=== PATIENT | female | born 1940 | race Caucasian/White ===

== ENCOUNTER 2020-03-13 13:54 | Outpatient (CLI) | payer MEDICARE, OTHER, SELFPAY ==
--- NOTE | 2020-03-13 13:55 | USCV_ITS ---
Zenobia Carrington Age: 79 Gender: F : 1940 Exam Date: 03/13/2020 13:55 Ordering Phys: Timothy Amezcua MD ([email or web address]) Technologist: Exam Location: [facility] – [place] Indication: PAD RIGHT LEFT Brachial 137.00 mmHg Brachial 135.00 mmHg Pressure (mmHg) Waveform Pressure (mmHg) Waveform 137.00 [employer] 127.00 136.00 DPA 129.00 0.99 Ankle/Brachial Index 0.94 55.00 Pre-Exercise Toe Pressure 70.00 0.40 Pre-Exercise Toe/Brachial Index 0.52 FINDINGS Normal resting TIGRE on the right side Near normal resting TIGRE on the left side Diminished resting TBI s bilaterally CONCLUSIONS Features of mild peripheral artery disease bilaterally, involving the distal vessels Dr Karsten Frias MD FACC (Electronically Signed) Final Date: 14 Mar 2020 14:01 S
== END 2020-03-13 13:55 | disposition home or self-care (01) ==
LOC: RAD 13:54
PROVIDERS: PCP Nurse Practitioner Family; Visit Provider Internal Medicine Cardiovascular Disease
DX: I73.9 Peripheral vascular disease, unspecified (principal)
CPT/HCPCS: 93922

== ENCOUNTER 2021-02-03 06:00 | Outpatient (RCR) | payer MEDICARE, OTHER, SELFPAY | END 2021-02-20 23:59 | disposition home or self-care (01) | LOC: WPT 06:00 | PROVIDERS: PCP Nurse Practitioner Family; Referring Provider Nurse Practitioner Family; Visit Provider Nurse Practitioner Family | DX: M54.32 Sciatica, left side (principal) | CPT/HCPCS: 97110; 97163 ==

== ENCOUNTER 2021-02-21 06:00 | Outpatient (RCR) | payer MEDICARE, OTHER, SELFPAY | END 2021-03-23 23:59 | disposition home or self-care (01) | LOC: WPT 06:00 | PROVIDERS: PCP Nurse Practitioner Family; Referring Provider Nurse Practitioner Family; Visit Provider Nurse Practitioner Family | DX: M54.32 Sciatica, left side (principal) | CPT/HCPCS: 97110 ==

== ENCOUNTER 2022-01-21 19:45 | Emergency (ER) | payer MEDICARE, OTHER, SELFPAY ==
[2022-01-21 19:48] VITALS: PULSE 64; RESP 18; O2SAT 98; BMI 26.5
--- NOTE | 2022-01-21 19:53 | CTR_ITS ---
PROCEDURE INFORMATION: Exam: CT Head Without Contrast Exam date and time: 01/21/2022 8:11 PM Age: 81 years old Clinical indication: Pain; Patient HX: HTN w/ headache TECHNIQUE: Imaging protocol: Computed tomography of the head without contrast. Sagittal and coronal reformatted images were created and reviewed. Radiation optimization: All CT scans at this facility use at least one of these dose optimization techniques: automated exposure control; mA and/or kV adjustment per patient size (includes targeted exams where dose is matched to clinical indication); or iterative reconstruction. COMPARISON: CT head wo con* [id number] 10/16/2019 2:27 PM RADIATION DOSE METRICS: Total DLP (mGy-cm): 754.37 FINDINGS: Brain: No acute intracranial hemorrhage. No acute infarct. No intra-axial or extra-axial masses. Parsons-white matter differentiation is preserved. No cerebral edema. No extra-axial fluid collections. No midline shift. No evidence for Chiari 1 malformation. Stable mild atrophy of the brain parenchyma. Stable mildly decreased attenuation in the deep white matter, consistent with mild chronic microangiopathic change. Cerebral ventricles: No hydrocephalus. Paranasal sinuses: Near complete opacification of the visualized left maxillary sinus, findings are stable. Other visualized paranasal sinuses are clear. Mastoid air cells: Mastoid air cells are clear bilaterally. Orbital cavities: Globes and lenses, extraocular muscles, and optic nerves are intact bilaterally. No acute intraorbital abnormality. Vasculature: Atherosclerotic changes in the visualized arteries. Bones/joints: No acute fracture. Soft tissues: No acute abnormality of the extracranial soft tissues. CT/CT head wo con* [id number] IMPRESSION: 1. No acute abnormality of the brain. 2. Stable mild atrophy of the brain parenchyma. 3. Stable mild chronic white matter microangiopathic change. 4. Near complete opacification of the visualized left maxillary sinus, findings are stable. 5. Incidental/nonacute findings are listed in the report.
--- NOTE | 2022-01-21 19:53 | XRR_ITS ---
PROCEDURE INFORMATION: Exam: XR Chest Exam date and time: 01/21/2022 8:04 PM Age: 81 years old Clinical indication: Pain; Patient HX: No chest complaints, dizziness; Additional info: Cp TECHNIQUE: Imaging protocol: XR of the chest. Views: 1 view. COMPARISON: CR Chest 1 [place] [id number] 09/16/2019 4:17 PM FINDINGS: Lungs: Lungs are clear bilaterally. Pleural spaces: No pleural effusion. No pneumothorax. Heart/Mediastinum: Stable moderate enlargement of the cardiac silhouette. Mediastinal contours are unremarkable. Vasculature: Stable vascular calcifications in the aorta. Stable tortuosity of the aorta. Bones/joints: Unremarkable for age. XR/XR chest 1V portable [id number] IMPRESSION: 1. No acute cardiopulmonary process. 2. Incidental/nonacute findings are listed in the report.
--- NOTE | 2022-01-21 19:54 | ECG_ITS ---
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 Measurements Intervals [place] Rate: 66 P: 72 WV: 211 QRS: -26 QRSD: 104 T: -7 QT: 404 QTc: 426 Interpretive Statements SINUS RHYTHM WITH FIRST DEGREE AV BLOCK MINIMAL VOLTAGE CRITERIA FOR LVH, CONSIDER NORMAL VARIANT [MEETS CRITERIA IN ONE OF: R(aVL), S(V1), R(V5), R(V5/V6)+S(V1)] SEPTAL MYOCARDIAL INFARCTION , PROBABLY OLD [40+ ms Q WAVE IN V1/V2] Compared to ECG 09/16/2019 22:04:34 First degree AV block now present Myocardial infarct finding now present Electronically Signed On 01-22-2022 10:59:15 CDT by Brittany Hanson M.D. [id number]
--- NOTE | 2022-01-21 19:57 | ED_ITS ---
HPI - Dizziness General: Chief Complaint: General Medical Stated Complaint: hypertension Time Seen by Provider: 01/21/22 19:47 Source: patient and EMS Mode of arrival: EMS Limitations: no limitations History of Present Illness: HPI Narrative: 81-year-old female has a history of high blood pressure also had a history of stroke in the past. States that over the last 3 days her blood pressures been running in the 200s she takes losartan at home along with a low-dose Lasix but states that tonight she started getting very nervous as her blood pressure was 210 she had some mild dizziness no focal deficits. She denies any pain anywhere denies headache. Associated symptoms: Denies chest pain, chills, nausea or vomiting Review of Systems Const: Denies: fever(s), chills, body aches or change in appetite Eyes: Denies: blurry vision or eye discomfort ENMT: Denies: throat pain or dental pain Card: Denies: chest pain Resp: Denies: dyspnea GI: Denies: abdominal pain, nausea, vomiting or diarrhea : Denies: dysuria Musc: Denies: neck pain or back pain Skin/Breast: Denies: rash Neuro: Reports: dizziness Psych: Denies: depression Yaron/Lymph: Denies: easy bruising All/Imm: Denies: urticaria PFSH ED PFSH: Medical History (Updated 01/21/22 @ 20:59 by Fabian Broussard MD) Anxiety Asthma CKD (chronic kidney disease) COPD (chronic obstructive pulmonary disease) First degree atrioventricular block GERD (gastroesophageal reflux disease) History of pulmonary embolism History of TIA (transient ischemic attack) X7 HTN (hypertension) Hyperlipidemia Migraine PVD (peripheral vascular disease) Surgical History S/P cataract surgery S/P cholecystectomy S/P hysterectomy S/P knee surgery S/P rotator cuff repair X3 right Family History Father Diabetes Mother Stroke Family/Other Cancer Brother , CVA Stroke Social History Smoking and tobacco status: former smoker Physical Exam Const: COMMON NORMALS: no acute distress, patient oriented x3 and healthy appearing HENMT: COMMON NORMALS: normocephalic and atraumatic HEAD & SCALP: normocephalic and atraumatic Eye: COMMON NORMALS: Equal, round and reactive pupils present and EOMs intact bilaterally PUPIL: Yes Equal, round and reactive pupils present Neck/C-Spine: COMMON NORMALS: full ROM and supple Chest: COMMONS NORMALS: normal inspection of the chest and normal palpation of entire chest wall Resp: COMMON NORMALS: normal respiratory effort, No retractions, No use of accessory muscles and clear to auscultation bilaterally AUSCULTATION: clear to auscultation bilaterally Cardio: COMMON NORMALS: regular rate, regular rhythm and No murmurs present (Cardio) RATE: regular rate RHYTHM: regular rhythm GI: COMMON NORMALS: Normal to inspection, nondistended, normoactive bowel sounds present, Soft to palpation, non-tender and no masses PALPATION: Yes Soft to palpation Extremity: COMMON NORMALS: normal to inspection and full ROM Neuro: COMMON NORMALS: patient oriented x3, moves all extremities and no focal motor deficits Psych: COMMON NORMALS: mental status grossly normal, Normal thought process present and cooperative THOUGHT PROCESS: Normal thought process present Skin: COMMON NORMALS: no rashes or lesions noted and no wounds GENERAL SKIN EXAM: no rashes or lesions noted Course Vital Signs: Vital signs: Vital Signs Pulse Rate 61 01/21/22 21:04 Respiratory Rate 18 01/21/22 21:04 Blood Pressure 187/91 01/21/22 21:04 Pulse Oximetry 98 01/21/22 21:04 MDM - Dizziness Medical Decision Making Patient presents here with hypertension with some mild dizziness at times no other neurologic defects no signs of stroke CT head blood work here is all normal blood pressures improved after labetalol. We will increase her carvedilol from 6.25-12.5 twice daily she is to follow-up with PCP in 2 to 4 days return if worsening she understands agrees to plan. Lab Data : 01/21/22 19:50 01/21/22 19:50 Radiology Impressions Chest X-Ray 01/21/22 19:53 IMPRESSION: 1. No acute cardiopulmonary process. 2. Incidental/nonacute findings are listed in the report. Head CT 01/21/22 19:53 IMPRESSION: 1. No acute abnormality of the brain. 2. Stable mild atrophy of the brain parenchyma. 3. Stable mild chronic white matter microangiopathic change. 4. Near complete opacification of the visualized left maxillary sinus, findings are stable. 5. Incidental/nonacute findings are listed in the report. Laboratory Results WBC 6.8 10^3/uL (4.0-10.0) 01/21/22 19:50 RBC 4.84 10^6/uL (4.1-5.3) 01/21/22 19:50 Hgb 14.7 g/dL (11.5-15.3) 01/21/22 19:50 Hct 45.2 % (37.0-47.0) 01/21/22 19:50 MCV 93.4 fl (81-99) 01/21/22 19:50 MCH 30.4 pg (28.0-34.0) 01/21/22 19:50 MCHC 32.5 g/dL (30.0-36.0) 01/21/22 19:50 RDW 13.2 % (12.1-15.1) 01/21/22 19:50 Plt Count 196 10^3/cmm (130-400) 01/21/22 19:50 MPV 14.0 fL (7.4-10.4) H 01/21/22 19:50 Neut % (Auto) 44.2 % 01/21/22 19:50 Lymph % (Auto) 37.6 % 01/21/22 19:50 [place] % (Auto) 11.2 % 01/21/22 19:50 Eos % (Auto) 5.2 % 01/21/22 19:50 Baso % (Auto) 1.8 % 01/21/22 19:50 Neut # (Auto) 3.00 10^3/uL (1.8-7.7) 01/21/22 19:50 Lymph # (Auto) 2.6 10^3/uL (0.8-4.8) 01/21/22 19:50 [place] # (Auto) 0.8 10^3/uL (0.2-0.9) 01/21/22 19:50 Eos # (Auto) 0.4 10^3/uL (0.0-0.8) 01/21/22 19:50 Baso # (Auto) 0.1 10^3/uL (0.0-0.1) 01/21/22 19:50 Nucleated RBC % (auto) 0 % 01/21/22 19:50 Nucleated RBCs # 0.0 /100WBC 01/21/22 19:50 PT 23.80 SECONDS (12.1-14.9) H 01/21/22 20:19 INR 2.08 (0.8-1.2) H 01/21/22 20:19 Sodium 143 mmol/L (136-145) 01/21/22 19:50 Potassium 4.4 mmol/L (3.5-5.1) 01/21/22 19:50 Chloride 107 mmol/L (98-107) 01/21/22 19:50 Carbon Dioxide 25 mmol/L (22-29) 01/21/22 19:50 Anion Gap 15.4 (5-19) 01/21/22 19:50 BUN 20 mg/dL (8-23) 01/21/22 19:50 Creatinine 0.8 mg/dL (0.5-0.9) 01/21/22 19:50 GFR Calculation Not Reportable 01/21/22 19:50 Glucose 115 mg/dL (65-115) 01/21/22 19:50 Calculated Osmolality 300 mOsm/kg (285-295) H 01/21/22 19:50 Calcium 9.7 mg/dL (8.5-10.5) 01/21/22 19:50 Total Bilirubin 0.2 mg/dL (0.15-1.2) 01/21/22 19:50 AST 29 U/L (0-32) 01/21/22 19:50 ALT 19 U/L (0-33) 01/21/22 19:50 Alkaline Phosphatase 63 IU/L (35-105) 01/21/22 19:50 Total Protein 6.2 g/dL (6.6-8.7) L 01/21/22 19:50 Albumin 4.6 g/dL (3.5-5.2) 01/21/22 19:50 Globulin 1.6 g/dL (1.3-4.6) 01/21/22 19:50 EKG Data EKG 1: I personally reviewed and interpreted this EKG as follows: EKG interpretation date: 01/21/22 EKG interpretation time: 19:58 Interpretation: nsr hr [address] or t wave abnormalities qrs 104 qtc 418 Discharge Plan Discharge Patient Disposition: Home Clinical Impression: HTN (hypertension) Condition: Stable Prescriptions: Changed carvedilol 6.25 mg tablet 12.5 mg PO BID Qty: 180 3RF Rx Instructions: must administer with a meal/food No Action aspirin [Adult Low Dose Aspirin] 81 mg tablet,delayed release (DR/EC) 81 mg PO DAILY 0RF escitalopram oxalate 20 mg tablet 20 mg PO DAILY 0RF magnesium oxide 500 mg capsule 500 mg PO DAILY 0RF multivitamin Tablet 1 tab PO DAILY 0RF rosuvastatin 20 mg tablet 20 mg PO DAILY 0RF topiramate 25 mg tablet 25 mg PO DAILY 0RF cholecalciferol (vitamin D3) 25 mcg (1,000 unit) capsule 1,000 unit PO DAILY 0RF warfarin [Coumadin] 7.5 mg tablet PO 0RF Label Comments: 5mg daily ascorbic acid (vitamin C) 500 mg capsule 500 mg PO DAILY 0RF Prolia 60 mg/mL syringe 60 mg SUBCUT Q6M 0RF famotidine 20 mg tablet 20 mg PO DAILY 0RF potassium chloride 10 mEq tablet extended release 20 meq PO DAILY 0RF [id number]-kolyumouei-qyx-cod [id number] mg capsule 1 cap PO Q4H PRN0RF folic acid 800 mcg tablet 0.8 mg PO DAILY 0RF furosemide 20 mg tablet 20 mg PO DAILY Qty: 90 3RF losartan 50 mg tablet 50 mg PO BID Qty: 60 6RF Discharge Orders: Discharge ED (Routine); Ordered 01/21/22 Ordered By: Fabian Broussard Referrals: Justine Alvarez FNP-C [Primary Care Provider] - 1-3 days Discharge Diet: Advance as tolerated Discharge Activity: Resume usual activity Patient Instructions: Hypertension (ED) Coding Level of Care Code ED Field Return Repairer for Chg Fwd Exam Comprehensive
[2022-01-21 20:01] LABS: Basophils # 0.1 10^3/uL (0.0-0.1); Basophils % 1.8 %; Eosinophils # 0.4 10^3/uL (0.0-0.8); Eosinophils % 5.2 %; Hematocrit 45.2 % (37.0-47.0); Hemoglobin 14.7 g/dL (11.5-15.3); Lymphocytes # 2.6 10^3/uL (0.8-4.8); Lymphocytes % 37.6 %; Mean Corpuscular HGB Conc 32.5 g/dL (30.0-36.0); Mean Corpuscular Hemoglobin 30.4 pg (28.0-34.0); Mean Corpuscular Volume 93.4 fl (81-99); Monocytes # 0.8 10^3/uL (0.2-0.9); Monocytes % 11.2 %; Neutrophils % 44.2 %; Nucleated Red Blood Cells % 0 %; Platelet Count 196 10^3/cmm (130-400); Red Blood Count 4.84 10^6/uL (4.1-5.3); Red Cell Distribution Width 13.2 % (12.1-15.1); White Blood Count 6.8 10^3/uL (4.0-10.0)
[2022-01-21 20:05] VITALS: BP 211/88; PULSE 67; RESP 18; O2SAT 96
[2022-01-21] MEDS: labetalol 5 mg/mL SDV 20mL 10 MG IVP (20:18)
[2022-01-21 20:24] LABS: Alanine Aminotransferase 19 U/L (0-33); Albumin Level 4.6 g/dL (3.5-5.2); Alkaline Phosphatase 63 IU/L (35-105); Anion Gap 15.4 (5-19); Aspartate Amino Transferase 29 U/L (0-32); Blood Urea Nitrogen 20 mg/dL (8-23); Calcium 9.7 mg/dL (8.5-10.5); Carbon Dioxide 25 mmol/L (22-29); Chloride 107 mmol/L (98-107); Creatinine Clr Calc Pharmacy 49.3379; Globulin 1.6 g/dL (1.3-4.6); Glucose 115 mg/dL (65-115); Osmolality Calculated 300 mOsm/kg (285-295); Potassium 4.4 mmol/L (3.5-5.1); Sodium 143 mmol/L (136-145); Total Bilirubin 0.2 mg/dL (0.15-1.2); Total Protein 6.2 g/dL (6.6-8.7)
[2022-01-21 20:35] VITALS: BP 162/78; PULSE 58; RESP 18; O2SAT 97
[2022-01-21 20:49] LABS: INR 2.08 (0.8-1.2)
[2022-01-21 21:04] VITALS: BP 187/91; PULSE 61; RESP 18; O2SAT 98
== END 2022-01-21 21:09 | disposition home or self-care (01) ==
PROVIDERS: Emergency Provider Emergency Medicine; PCP Nurse Practitioner Family
DX: I10 Essential (primary) hypertension (principal); Z79.82 Long term (current) use of aspirin; Z79.01 Long term (current) use of anticoagulants; Z87.891 Personal history of nicotine dependence
CPT/HCPCS: 70450; 71045; 80053; 85025; 85610; 93005; 96374; 99283; J3490

== ENCOUNTER → 2022-04-28 12:58 | Outpatient (BNVA) | payer MEDICARE, OTHER, SELFPAY | PROVIDERS: PCP Nurse Practitioner Family; Visit Provider Internal Medicine Cardiovascular Disease | DX: I13.0 Hypertensive heart and chronic kidney disease with heart failure and stage 1 through stage 4 chronic kidney disease, or unspecified chronic kidney disease (principal); N18.9 Chronic kidney disease, unspecified; I50.21 Acute systolic (congestive) heart failure; Z87.891 Personal history of nicotine dependence; E78.5 Hyperlipidemia, unspecified; I26.99 Other pulmonary embolism without acute cor pulmonale; J44.9 Chronic obstructive pulmonary disease, unspecified; I73.9 Peripheral vascular disease, unspecified | CPT/HCPCS: 99213 ==

== ENCOUNTER → 2022-06-16 11:00 | Outpatient (BNVA) | payer MEDICARE, OTHER, SELFPAY | PROVIDERS: PCP Nurse Practitioner Family; Visit Provider Nurse Practitioner Family | DX: I11.0 Hypertensive heart disease with heart failure (principal); I50.21 Acute systolic (congestive) heart failure; Z87.891 Personal history of nicotine dependence | CPT/HCPCS: 99213; 99214 ==

== ENCOUNTER 2022-08-04 10:58 | Outpatient (CLI) | payer MEDICARE, OTHER, SELFPAY ==
--- NOTE | 2022-08-04 11:15 | USCV_ITS ---
Zenobia Carrington Age: 81 Gender: F : 1940 Exam Date: 08/04/2022 11:26 Ordering Phys: Ej Birmingham MD ([email or web address]) Technologist: Brandon Gonzalez Exam Location: [facility] – [place] Indication: Acute systolic heart failure BP: 142 / 64 HR: 58 Rhythm: Sinus Technical Quality: Adequate MEASUREMENTS (Male / Female) Normal Values 2D ECHO LV Diastolic Diameter PLAX 5.1 cm 4.2 - 5.9 / 3.9 - 5.3 cm LV Systolic Diameter PLAX 3.9 cm IVS Diastolic Thickness 0.7 cm 0.6 - 1.0 / 0.6 - 0.9 cm IVS Systolic Thickness 0.8 cm LVPW Diastolic Thickness 1.0 cm 0.6 - 1.0 / 0.6 - 0.9 cm LVPW Systolic Thickness 1.3 cm LVOT Diameter 2.0 cm LV Ejection Fraction 2D Teich 45.7 % LV Ejection Fraction MOD 2C 66.6 % LV Ejection Fraction 2C AL 66.4 % LA Diameter 4.1 cm LA Width 3.6 cm LA Height 5.0 cm RA Width 3.6 cm RA Height 4.4 cm Aorta at Sinotubular Diameter 2.2 cm IVC Diameter 1.8 cm M-MODE Aortic Annulus Diameter 2.6 cm LA Ao Ratio MM 1.7 MV E Point Septal Separation 0.8 cm DOPPLER AV Peak Velocity 122.3 cm/s LVOT Peak Velocity 72.0 cm/s AV Area Cont Eq vti 1.6 cm squared AV Area Cont Eq pk 1.9 cm squared MV Peak Velocity 110.0 cm/s MV Area PHT 5.8 cm squared Mitral E to A Ratio 1.4 MV E' Velocity 57.0 cm/s Mitral E to MV E' Ratio 8.6 Mitral E to LV E' Lateral Ratio 6.9 Mitral E to LV E' Septal Ratio 11.5 TR Peak Velocity 304.8 cm/s TR Peak Gradient 37.2 mmHg TR Mean Velocity 229.5 cm/s TR Mean Gradient 23.1 mmHg TR Velocity Time Integral 109.2 cm Right Atrial Pressure 3.0 mmHg Pulmonary Artery Systolic Pressu 40.2 mmHg PV Peak Velocity 76.0 cm/s RV Acceleration Time 0.1 s RV Ejection Time 0.3 s RV AcT/ET 0.4 FINDINGS Left Ventricle Normal left ventricular size, systolic function and wall thickness, with no regional wall motion abnormalities. Left ventricular ejection fraction is estimated at 60 %. Grade II diastolic dysfunction, moderately elevated filling pressures. Right Ventricle Normal right ventricular size and systolic function. Right ventricular systolic pressure 36 mmHg. Right Atrium Normal right atrial size. Left Atrium Mildly increased left atrial size. Mitral Valve Mildly thickened mitral valve. No mitral valve stenosis. Mild mitral valve regurgitation. Aortic Valve Mildly thickened trileaflet aortic valve. No aortic valve stenosis. No aortic valve regurgitation. Tricuspid Valve Structurally normal tricuspid valve. No tricuspid valve stenosis. Mild tricuspid valve regurgitation. Pulmonic Valve Structurally normal pulmonic valve. No pulmonary valve stenosis. Trace pulmonary valve regurgitation. Pericardium No pericardial effusion. Aorta Normal size aortic root and proximal ascending aorta. IVC Normal IVC dimension with >50% respiratory change of the inferior vena cava. CONCLUSIONS 1. Normal left ventricular size, systolic function and wall thickness, with no regional wall motion abnormalities. Left ventricular ejection fraction is estimated at 60 %. Grade II diastolic dysfunction, moderately elevated filling pressures. 2. Normal right ventricular size and systolic function. 3. Mild mitral and tricuspid valve regurgitation. 4. Pulmonary artery pressure estimated at 36 mmHg. 5. When compared to study dated 09/17/2019, left ventricle systolic function and mitral regurgitation has improved. Brittany Hanson MD (Electronically Signed) Final Date: 09 August 2022 08:55 S
== END 2022-08-04 10:59 | disposition home or self-care (01) ==
LOC: RAD 10:59
PROVIDERS: PCP Nurse Practitioner Family; Visit Provider Internal Medicine Cardiovascular Disease
DX: I11.0 Hypertensive heart disease with heart failure (principal); I50.20 Unspecified systolic (congestive) heart failure; I73.9 Peripheral vascular disease, unspecified; Z86.711 Personal history of pulmonary embolism
CPT/HCPCS: 93306

== ENCOUNTER → 2022-10-27 10:41 | Outpatient (BNVA) | payer MEDICARE, OTHER, SELFPAY | PROVIDERS: PCP Nurse Practitioner Family; Visit Provider Internal Medicine Cardiovascular Disease | DX: I13.0 Hypertensive heart and chronic kidney disease with heart failure and stage 1 through stage 4 chronic kidney disease, or unspecified chronic kidney disease (principal); N18.9 Chronic kidney disease, unspecified; I50.21 Acute systolic (congestive) heart failure; Z87.891 Personal history of nicotine dependence | CPT/HCPCS: 99214; Q3014 ==

== ENCOUNTER → 2022-12-10 08:29 | Outpatient (BNVA) | payer MEDICARE, OTHER, SELFPAY | PROVIDERS: PCP Nurse Practitioner Family; Visit Provider Nurse Practitioner Family | DX: I20.9 Angina pectoris, unspecified (principal); I12.9 Hypertensive chronic kidney disease with stage 1 through stage 4 chronic kidney disease, or unspecified chronic kidney disease; N18.9 Chronic kidney disease, unspecified; Z87.891 Personal history of nicotine dependence; R00.1 Bradycardia, unspecified; I44.0 Atrioventricular block, first degree; I73.9 Peripheral vascular disease, unspecified | CPT/HCPCS: 93005; 99214 ==

== ENCOUNTER 2023-06-02 12:53 | Inpatient (IN) | payer MEDICARE, SELFPAY ==
[2023-06-02] VITALS (13 sets, daily range): BP systolic 83–142; BP diastolic 44–68; PULSE 68–84; RESP 15–28; TEMP 36.7–37.5; O2SAT 93–100; BMI 24.6
[2023-06-02 13:16] LABS: Hematocrit 40.1 % (37.0-47.0); Hemoglobin 13.2 g/dL (11.5-15.3); Mean Corpuscular HGB Conc 32.9 g/dL (30.0-36.0); Mean Corpuscular Hemoglobin 30.7 pg (28.0-34.0); Mean Corpuscular Volume 93.3 fl (81-99); Mean Platelet Volume 11.9 fL (7.4-10.4); Platelet Count 188 10^3/cmm (130-400); Red Cell Distribution Width 13.6 % (12.1-15.1); White Blood Count 21.6 10^3/uL (4.0-10.0)
[2023-06-02 13:19] LABS: Slide Review Slide Review Perform
[2023-06-02 13:28] LABS: INR 2.72 (0.8-1.2)
[2023-06-02 13:30] LABS: D Dimer 1.09 ug/mIFEU (0-0.59)
--- NOTE | 2023-06-02 13:41 | W.ED.GENADLT ---
HPI - General Adult General: Chief complaint: General Medical Stated complaint: coughing blood, chest pain in right lung Time Seen by Provider: 06/02/23 12:59 History of Present Illness: 82-year-old lady on anticoagulation presented the emergency department for evaluation of hemoptysis. Notes onset of symptoms a few days ago. Did have a few days of cough preceding that. Now has cough with associated right-sided chest pain. Moderate to severe in intensity. Intermittent bright red blood. Has had diarrhea and fever. No other specific changes in health, exacerbating, or alleviating factors identified. Onset (ago): day(s) Location: chest Severity: moderate Quality: stabbing and sharp Exacerbating factors: movement and other Review of Systems General: Reports: 10 or more systems reviewed and unremarkable except in HPI and below PFSH ED PFSH: Medical History (Updated 06/06/23 @ 00:01 by CHAR Arzola) Angina pectoris, unspecified Anxiety Asthma CKD (chronic kidney disease) COPD (chronic obstructive pulmonary disease) First degree atrioventricular block GERD (gastroesophageal reflux disease) History of pulmonary embolism History of TIA (transient ischemic attack) X7 HTN (hypertension) Hyperlipidemia Migraine Plantar fasciitis Pulmonary embolism PVD (peripheral vascular disease) Systolic heart failure EF of 46% which has improved to 60% Surgical History S/P cataract surgery S/P cholecystectomy S/P hysterectomy S/P knee surgery S/P rotator cuff repair X3 right Family History Father Diabetes Mother Stroke Family/Other Cancer Brother , CVA Stroke Social History (Updated 06/02/23 @ 17:09 by Jake Johnson MD) Smoking and tobacco status: former smoker (50+years ago) Alcohol intake: never Adopted: No Caregiver/support person: Yes Lives independently: Yes Household members: none Housing: House Physical Exam Const: COMMON NORMALS: alert GENERAL APPEARANCE: cooperative and well developed HENMT: COMMON NORMALS: normocephalic and atraumatic HEAD & SCALP: normocephalic and atraumatic THROAT: posterior oropharynx normal Eye: COMMON NORMALS: conjunctivae normal CONJUNCTIVA: Yes conjunctivae normal SCLERA: sclerae normal Neck/C-Spine: COMMON NORMALS: supple GENERAL: Yes trachea midline Resp: EFFORT & INSPECTION: Yes able to speak in complete sentences AUSCULTATION: rhonchi Cardio: COMMON NORMALS: regular rate and regular rhythm RATE: regular rate RHYTHM: regular rhythm GI: COMMON NORMALS: Soft to palpation PALPATION: Yes Soft to palpation and No Tenderness to palpation present (GI) Extremity: GENERAL: Yes normal exam except as noted and No edema Neuro: COMMON NORMALS: moves all extremities SENSORIUM/ORIENTATION: Yes alert and No Orientation impaired Psych: COMMON NORMALS: mental status grossly normal and Normal thought process present THOUGHT PROCESS: Normal thought process present Course Vital Signs: Vital signs: Vital Signs Temperature 97.7 F 06/05/23 14:42 Pulse Rate 66 06/05/23 14:42 Respiratory Rate 18 06/05/23 14:42 Blood Pressure 170/72 06/05/23 14:42 Pulse Oximetry 98 06/05/23 14:42 Oxygen Delivery Me thod Room Air 06/05/23 12:05 [facility] - General Adult Medical Decision Making 82-year-old lady presenting with chest pain and hemoptysis. Exam as above. Nontoxic. No active bleeding on clinical exam currently. EKG demonstrates sinus rhythm with first-degree AV block and left axis deviation. Nonspecific ST segment abnormalities. No STEMI. Labs with leukocytosis, normal hemoglobin. INR therapeutic. Likely dehydration on metabolic panel. Elevated initial troponin with negative range 2-hour delta. Patient is not low risk by Wells or PERC and therefore we will proceed with CTA. Wedge-shaped consolidation likely representing pneumonia. No PE. Treated with Tessalon Perles, analgesia, antibiotics. Requires inpatient monitoring and treatment given anticoagulation and overall clinical status. The results of ED evaluation were discussed with the patient including plan for admission due to requirement for level of care not available if discharged to prevent significant worsening/deterioration. Patient agreeable with plan. Discussed with hospitalist service who was agreeable to admit patient. Medical Records I reviewed the patient's medical records. Lab Data I reviewed the patient's lab results. 06/05/23 04:43 06/05/23 04:43 Laboratory Results WBC 21.6 10^3/uL (4.0-10.0) H 06/02/23 13:05 RBC 4.30 10^6/uL (4.1-5.3) 06/02/23 13:05 Hgb 13.2 g/dL (11.5-15.3) 06/02/23 13:05 Hct 40.1 % (37.0-47.0) 06/02/23 13:05 MCV 93.3 fl (81-99) 06/02/23 13:05 MCH 30.7 pg (28.0-34.0) 06/02/23 13:05 MCHC 32.9 g/dL (30.0-36.0) 06/02/23 13:05 RDW 13.6 % (12.1-15.1) 06/02/23 13:05 Plt Count 188 10^3/cmm (130-400) 06/02/23 13:05 MPV 11.9 fL (7.4-10.4) H 06/02/23 13:05 Lymph % (Auto) Not Reportable 06/02/23 13:05 Garvin % (Auto) Not Reportable 06/02/23 13:05 Lymph # (Auto) Not Reportable 06/02/23 13:05 Garvin # (Auto) Not Reportable 06/02/23 13:05 Total Counted 100 (0-100) 06/02/23 13:05 Atypical Lymphs % 0.0 % (0-5) 06/02/23 13:05 Absolute Neutrophils 17.3 10^3/cmm (1.4-6.5) H 06/02/23 13:05 Segmented Neutrophils 66 % 06/02/23 13:05 Abs Segm Neuts (Man) 14.3 10/cmm (1.6-7.1) H 06/02/23 13:05 Band Neutrophils 14.0 % 06/02/23 13:05 Abs Band Neuts (Man) 3.0 10^3/cmm (0.0-1.2) H 06/02/23 13:05 Absolute Lymphocytes 2.4 10^3/cmm (1.2-3.4) 06/02/23 13:05 Lymphocytes (Manual) 11 % 06/02/23 13:05 Monocytes (Manual) 7.0 % 06/02/23 13:05 Absolute Monocytes 1.5 10^3/cmm (0.1-0.6) H 06/02/23 13:05 Eosinophils (Manual) 0 % 06/02/23 13:05 Absolute Eosinophils 0.0 10^3/cmm (0.0-0.7) 06/02/23 13:05 Basophils (Manual) 0.0 % 06/02/23 13:05 Absolute Basophils 0.0 10^3/cmm (0.0-0.2) 06/02/23 13:05 Metamyelocytes 0.0 % 06/02/23 13:05 Myelocytes 2.0 % 06/02/23 13:05 Promyelocytes 0.0 % 06/02/23 13:05 Nucleated RBCs 0.0 /100WBC (0-1) 06/02/23 13:05 Dohle Bodies 3+ H 06/02/23 13:05 Platelet Estimate Normal (Normal) 06/02/23 13:05 PT 29.90 SECONDS (12.1-14.9) H 06/02/23 13:05 INR 2.72 (0.8-1.2) H 06/02/23 13:05 D-Dimer 1.09 ug/mIFEU (0-0.59) H 06/02/23 13:05 Sodium 146 mmol/L (136-145) H 06/02/23 13:05 Potassium 4.1 mmol/L (3.5-5.1) 06/02/23 13:05 Chloride 110 mmol/L (98-107) H 06/02/23 13:05 Carbon Dioxide 21 mmol/L (22-29) L 06/02/23 13:05 Anion Gap 19.1 (5-19) H 06/02/23 13:05 BUN 23 mg/dL (8-23) 06/02/23 13:05 Creatinine 1.2 mg/dL (0.5-0.9) H 06/02/23 13:05 GFR Calculation Not Reportable 06/02/23 13:05 Glucose 144 mg/dL (65-115) H 06/02/23 13:05 Calculated Osmolality 308 mOsm/kg (285-295) H 06/02/23 13:05 Lactic Acid 2.1 mmol/L (0.5-2.2) 06/02/23 15:28 Calcium 8.9 mg/dL (8.5-10.5) 06/02/23 13:05 Total Bilirubin 0.8 mg/dL (0.15-1.2) 06/02/23 13:05 AST 25 U/L (0-32) 06/02/23 13:05 ALT 16 U/L (0-33) 06/02/23 13:05 Alkaline Phosphatase 54 U/L (35-105) 06/02/23 13:05 Troponin T Baseline 182 ng/L (0-10) H* 06/02/23 13:05 Troponin T 120 Minute 146.0 ng/L (0-10) H 06/02/23 15:28 Delta Troponin T -36.0 ABS# (0-10) L 06/02/23 15:28 Total Protein 5.4 g/dL (6.6-8.7) L 06/02/23 13:05 Albumin 5.0 g/dL (3.5-5.2) 06/02/23 13:05 Globulin 0.4 g/dL (1.3-4.6) L 06/02/23 13:05 Vitamin B12 1709 pg/mL (232-1245) H 06/02/23 15:28 Folate > 20.0 ng/mL (4.8-37.3) 06/02/23 13:05 Procalcitonin 64.93 ng/mL (0-0.5) H 06/02/23 13:05 Nasal Influ A H1 2008 PCR Not detected (NOT DETECT) 06/02/23 14:35 Adenovirus (PCR) Not detected (NOT DETECT) 06/02/23 14:35 C. pneumoniae DNA (PCR) Not detected (NOT DETECT) 06/02/23 14:35 Coronavirus 229E (PCR) Not detected (NOT DETECT) 06/02/23 14:35 Human Metapneumovir PCR Not detected (NOT DETECT) 06/02/23 14:35 Influenza A (H1) PCR Not detected (NOT DETECT) 06/02/23 14:35 Influenza A (H3) PCR Not detected (NOT DETECT) 06/02/23 14:35 Influenza Type A (PCR) Not detected (NOT DETECT) 06/02/23 14:35 Influenza Type B (PCR) Not detected (NOT DETECT) 06/02/23 14:35 M. pneumoniae (PCR) Not detected (NOT DETECT) 06/02/23 14:35 Parainfluenza 1 (PCR) Not detected (NOT DETECT) 06/02/23 14:35 Parainfluenza 2 (PCR) Not detected (NOT DETECT) 06/02/23 14:35 Parainfluenza 3 (PCR) Not detected (NOT DETECT) 06/02/23 14:35 Parainfluenza 4 (PCR) Not detected (NOT DETECT) 06/02/23 14:35 RSV Type A (PCR) Not detected (NOT DETECT) 06/02/23 14:35 RSV Type B (PCR) Not detected (NOT DETECT) 06/02/23 14:35 Entero/Rhino (PCR) Not detected (NOT DETECT) 06/02/23 14:35 SARS-CoV-2 (PCR) Not detected (NOT DETECT) 06/02/23 14:35 Discharge Plan Discharge Patient Disposition: Placed in Observation Admit Provider: Jake Johnson Clinical Impression: Pneumonia, Cough with hemoptysis Coding Level of Care Code ED Spark Plug Assembler for Milagros Lafleur
--- NOTE | 2023-06-02 13:45 | CT_ITS ---
WS: [id number] CTA OF THE CHEST WITH PULMONARY EMBOLISM PROTOCOL TECHNIQUE: High-resolution contrast enhanced CTA of the chest with coronal and sagittal reformatted i mages with pulmonary embolism protocol. MIP images are also reviewed. CLINICAL INFORMATION: Hemoptysis, cp COMPARISON: None. DLP: 278.[address] scans at [facility] use at least one of these dose optimization techniques: automated e xposure control; mA and/or kV adjustment per patient size (includes targeted exams where dose is matc hed to clinical indication); or iterative reconstruction. FINDINGS: Wedge-shaped consolidation in the right middle lobe medially with air bronchograms. Additional hazy g roundglass infiltrates in the right middle lobe laterally. Recommend correlation for pneumonia and fo llow-up to resolution. Trace fluid in the right lower lobe. Slight right basilar atelectasis. Proximal main pulmonary arteries are normal. Normal segmental and subsegmental pulmonary arteries. No evidence of pulmonary embolus. Normal caliber thoracic aorta. Aortic calcification. No mediastinal or hilar lymphadenopathy. No axil dash lymphadenopathy. Normal caliber descending thoracic aorta. Prior cholecystectomy. Small amount of contrast reflux into the hepatic veins. Tiny esophageal hiatal hernia. Adrenal glands are normal. Fatty atrophy of the pa ncreas. Splenic artery calcification. Cardiomegaly. Moderate thoracic kyphosis. IMPRESSION: 1. Proximal main pulmonary arteries are normal. Normal segmental and subsegmental pulmonary arteries . No evidence of pulmonary embolus. 2. Wedge-shaped consolidation measuring 4.4 x 2.7 cm within the right middle lobe with air bronchogr ams and hazy groundglass opacities laterally suspicious for pneumonia. Recommend follow-up to resolut ion and consider follow-up with bronchoscopy to exclude underlying lesion. 3. Trace right pleural fluid with right basal atelectasis. 4. Prior cholecystectomy. 5. Tiny esophageal hernia. 6. Cardiomegaly.
--- NOTE | 2023-06-02 13:46 | ECG_ITS ---
[facility] Test Date: 2023-06-02 Pat Name: Zenobia Carrington Department: Room: Gender: Female Belt Lacer: : 1940 Requested By: Fabian Broussard Order Number: [id number] Mary MD: Eric Grace M.D. Measurements Intervals [place] Rate: 77 P: 81 MS: 213 QRS: -36 QRSD: 93 T: -42 QT: 399 QTc: 452 Interpretive Statements SINUS RHYTHM WITH FIRST DEGREE AV BLOCK WITH OCCASIONAL SUPRAVENTRICULAR PREMATURE COMPLEXES LEFT AXIS DEVIATION [QRS AXIS < -30] VOLTAGE CRITERIA FOR LVH [MEETS CRITERIA IN ONE OF: R(aVL), S(V1), R(V5), R(V5/V6)+S(V1)] POSSIBLE ANTEROSEPTAL MYOCARDIAL INFARCTION , OF INDETERMINATE AGE [30 ms Q WAVE IN V1-V4] Compared to ECG 01/21/2022 19:58:02 Left-axis deviation now present Myocardial infarct finding still present Electronically Signed On 06-03-2023 9:26:29 CDT by Eric Grace M.D. [id number]
[2023-06-02 13:47] LABS: Chloride 110 mmol/L (98-107); Potassium 4.1 mmol/L (3.5-5.1); Sodium 146 mmol/L (136-145)
[2023-06-02 13:53] LABS: Absolute Neutrophil 17.3 10^3/cmm (1.4-6.5); Absolute Segmented Neutrophil 14.3 10/cmm (1.6-7.1); Eosinophils 0 %; Lymphocytes 11 %; Lymphocytes Absolute 2.4 10^3/cmm (1.2-3.4); Monocytes Absolute 1.5 10^3/cmm (0.1-0.6); Platelet Estimate Normal (Normal); Segmented Neutrophils 66 %; Total Cells Counted 100 (0-100)
[2023-06-02 13:54] LABS: Dohle Bodies 3+
[2023-06-02 13:58] LABS: Troponin(5th) Baseline 182 ng/L (0-10)
[2023-06-02 14:02] LABS: Alanine Aminotransferase 16 U/L (0-33); Anion Gap 19.1 (5-19); Aspartate Amino Transferase 25 U/L (0-32); Blood Urea Nitrogen 23 mg/dL (8-23); Calcium 8.9 mg/dL (8.5-10.5); Carbon Dioxide 21 mmol/L (22-29); Globulin 0.4 g/dL (1.3-4.6); Glucose 144 mg/dL (65-115); Osmolality Calculated 308 mOsm/kg (285-295); Total Bilirubin 0.8 mg/dL (0.15-1.2); Total Protein 5.4 g/dL (6.6-8.7)
[2023-06-02 14:20] LABS: Procalcitonin 64.93 ng/mL (0-0.5)
[2023-06-02] MEDS: iohexol 350 mg/mL 500 mL Btl (per mL) IV (14:26)
[2023-06-02 14:46] LABS: Alkaline Phosphatase 54 U/L (35-105)
--- NOTE | 2023-06-02 14:57 | ECG_ITS ---
[facility] Test Date: 2023-06-02 Pat Name: Zenobia Carrington Department: Room: Gender: Female Inspecting Engineer: : 1940 Requested By: Fabian Broussard Order Number: [id number] Mary MD: Eric Grace M.D. Measurements Intervals [place] Rate: 72 P: 78 WV: 211 QRS: -29 QRSD: 97 T: -23 QT: 423 QTc: 463 Interpretive Statements SINUS RHYTHM WITH FIRST DEGREE AV BLOCK MINIMAL VOLTAGE CRITERIA FOR LVH, CONSIDER NORMAL VARIANT [MEETS CRITERIA IN ONE OF: R(aVL), S(V1), R(V5), R(V5/V6)+S(V1)] ANTEROSEPTAL MYOCARDIAL INFARCTION , OF INDETERMINATE AGE [40+ ms Q WAVE IN V1-V4] Compared to ECG 06/02/2023 13:46:53 Left-axis deviation no longer present Myocardial infarct finding still present Electronically Signed On 06-03-2023 9:30:04 CDT by Eric Grace M.D. [id number]
[2023-06-02] MEDS: benzonatate 100 mg Capsule PO (15:31)
[2023-06-02] MEDS: levofloxacin-dextrose 5 % 750 MG/150 ML PREMIX 100 MG IV (15:54)
[2023-06-02] MEDS: morphine 4 mg/mL SDV 1 mL IVP (15:55)
[2023-06-02 16:05] LABS: Lactic Sepsis W/Reflex 2.1 mmol/L (0.5-2.2)
[2023-06-02 16:22] LABS: Adenovirus Not Detected (NOT DETECT); Chlamydia Pneumoniae Not Detected (NOT DETECT); Coronavirus 229E,HKU1,NL63,OC4 Not Detected (NOT DETECT); Human Metapneumovirus Not Detected (NOT DETECT); Human Rhinovirus/Enterovirus Not Detected (NOT DETECT); Influenza A Not Detected (NOT DETECT); Influenza A H1 Not Detected (NOT DETECT); Influenza A H1-2009 Not Detected (NOT DETECT); Influenza A H3 Not Detected (NOT DETECT); Influenza B Not Detected (NOT DETECT); Mycoplasma Pneumoniae Not Detected (NOT DETECT); Parainfluenza Virus Type 1 Not Detected (NOT DETECT); Parainfluenza Virus Type 2 Not Detected (NOT DETECT); Parainfluenza Virus Type 3 Not Detected (NOT DETECT); Parainfluenza Virus Type 4 Not Detected (NOT DETECT); Respiratory Syncytial Virus A Not Detected (NOT DETECT); Respiratory Syncytial Virus B Not Detected (NOT DETECT); SARS-COV-2 Not Detected (NOT DETECT)
--- NOTE | 2023-06-02 16:41 | P.HP_ITS ---
Providers/Chief Complaint Primary Care Provider: Sunshine Aguilar Chief Complaint: coughing blood, chest pain in right lung History of Present Illness Zenobia Carrington is a 82 year old female with past medical history of chronic pulmonary embolism, DVT on warfarin, LV dysfunction in past with most recent echocardiogram showing improvement with EF up to 60% with grade 2 diastolic dysfunction, hypertension, peripheral vascular disease who came to the ER with complaint of right-sided chest pain along with cough and hemoptysis ongoing for the last 2 days. As per patient she was having some runny nose along with sinus infection last which improved but since Tuesday she has started having cough again. Today is . As per patient cough Getting worse over last 3 days with episode of hemoptysis which started on Tuesday night and again happened last night so she presented to the ER along with sharp right-sided chest pain. Also complains of having multiple episodes of diarrhea for last 2 days along with poor oral intake. In the ER CTA was done which ruled out pulmonary embolism but was consistent with a right-sided pneumonia. Patient was ordered for IV Levaquin and vancomycin. At presentation her blood pressures were 83 systolics but on examination had improved to 120 systolics. Review of Systems General: Reports: 10 or more systems reviewed and unremarkable except in HPI and below Const: Denies: fever(s), chills, body aches, change in appetite, change in weight, malaise, night sweats, diaphoresis, change in sleep pattern, daytime sleepiness or snoring Eyes: Denies: change in vision, blurry vision, photophobia, eye discomfort or eye discharge ENMT: Denies: throat pain, enlarged tonsils, hoarseness, mouth pain, oral sores, dry mouth, tinnitus, nasal congestion or post nasal drip Card: Denies: chest pain, palpitations, irregular heart rhythm, edema, swelling of feet/ankles, lightheadedness, syncope, pre-syncope, dyspnea on exertion, orthopnea, leg pain with exertion or acrocyanosis Resp: Denies: dyspnea, productive cough, non-productive cough, wheezing, stridor, pain on inspiration, change in phlegm color, hemoptysis or chest congestion GI: Denies: abdominal pain, nausea, vomiting, hematemesis, coffee ground emesis, dysphagia, heartburn, diarrhea, constipation, bloating, GI cramping, change in bowel habits, pain on defecation, hematochezia or melena : Denies: flank pain, dysuria, urinary frequency, urinary urgency, urinary hesitancy, nocturia or hematuria Musc: Denies: neck pain, back pain, extremity pain, joint pain, joint swelling, joint redness, joint stiffness or limited range of motion Neuro: Denies: headache(s), numbness in extremities, weakness in extremities, sensory changes, lack of coordination, difficulty walking, frequent falls, dizziness, vertigo, confusion, Slurred speech present, difficulty communicating thoughts or seizure-like activity Psych: Denies: anxiety, depression, mood swings, panic attacks, hopelessness or irritability Endo: Denies: polyuria, polydipsia, tired all the time, cold intolerance, excessive sweating, flushing or heat intolerance Yaron/Lymph: Denies: easy bruising or easy bleeding All/Imm: Denies: tongue swelling, facial swelling or acute wheezing Medications/Allergies Home Medications Medication Instructions Recorded Confirmed Last Taken Type aspirin 81 mg tablet,delayed 81 mg PO DAILY 01/17/20 06/02/23 06/02/23 History release (Adult Low Dose Aspirin) cholecalciferol (vitamin D3) 25 1,000 unit PO DAILY 01/17/20 06/02/23 06/01/23 History mcg (1,000 unit) capsule magnesium oxide 500 mg capsule 500 mg PO DAILY 01/17/20 06/02/23 06/02/23 History topiramate 25 mg tablet 25 mg PO DAILY 01/17/20 06/02/23 06/02/23 History potassium chloride 10 mEq 20 meq PO DAILY 01/02/21 06/02/23 06/02/23 History tablet,extended release losartan 50 mg tablet 50 mg PO BID #60 tabs 01/27/21 06/02/23 06/02/23 Rx carvedilol 6.25 mg tablet 12.5 mg PO BID #180 tabs 01/21/22 06/02/23 06/02/23 Rx furosemide 20 mg tablet 20 mg PO DAILY #90 tabs 07/19/22 06/02/23 06/01/23 Rx ascorbic acid (vitamin C) 500 mg 500 mg PO DAILY 10/27/22 06/02/23 06/02/23 History capsule atorvastatin 20 mg tablet 20 mg PO DAILY 10/27/22 06/02/23 06/02/23 History famotidine 20 mg tablet 20 mg PO BID 10/27/22 06/02/23 06/02/23 History gabapentin 300 mg capsule 300 mg PO BID 06/02/23 06/02/23 06/02/23 History lorazepam 1 mg tablet 0.5 - 1 mg PO QPM 06/02/23 06/02/23 06/01/23 History oxrzeonp-kji-tziyi ac 400 1 tab PO DAILY 06/02/23 06/02/23 06/02/23 History mcg-calcium carb 500 mg-vit K1 20 mcg tablet (Women's 50 Plus Multivitamin) warfarin 5 mg tablet 5 mg PO DAILY 06/02/23 06/02/23 06/02/23 History Allergies Allergy/AdvReac Type Severity Reaction Status Date / Time Tetracyclines Allergy Severe Passed out Verified 06/02/23 14:18 cephalexin [From Keflex] Allergy Intermediate Nausea, Verified 06/02/23 14:18 diarrhea, vomiting Sulfa (Sulfonamide Allergy Intermediate Hives Verified 06/02/23 14:18 Antibiotics) fluticasone [From Flonase] Allergy Mild Rash Verified 06/02/23 14:18 lisinopril Allergy Mild Rash Verified 06/02/23 14:18 PFSH Acute PFSH: Medical History (Updated 06/02/23 @ 17:12 by Jake Johnson MD) Angina pectoris, unspecified Anxiety Asthma CKD (chronic kidney disease) COPD (chronic obstructive pulmonary disease) First degree atrioventricular block GERD (gastroesophageal reflux disease) History of pulmonary embolism History of TIA (transient ischemic attack) X7 HTN (hypertension) Hyperlipidemia Migraine Plantar fasciitis Pulmonary embolism PVD (peripheral vascular disease) Systolic heart failure EF of 46% which has improved to 60% Surgical History S/P cataract surgery S/P cholecystectomy S/P hysterectomy S/P knee surgery S/P rotator cuff repair X3 right Family History Father Diabetes Mother Stroke Family/Other Cancer Brother , CVA Stroke Social History (Updated 06/02/23 @ 17:09 by Jake Johnson MD) Smoking and tobacco status: former smoker (50+years ago) Alcohol intake: never Adopted: No Caregiver/support person: Yes Lives independently: Yes Household members: none Housing: House Vitals/I&O/Wt Last Vital Signs Temp 98.8 F 06/02/23 13:27 Pulse 75 06/02/23 14:38 Resp 24 H 06/02/23 15:55 BP 137/57 06/02/23 14:38 Pulse Ox 98 06/02/23 14:38 O2 Del Method Room Air 06/02/23 13:42 Weight last 48 hrs Weight 63.049 kg Physical Exam Narrative: General: No acute distress, AO x3, anxious HEENT: PERRLA, pupils bilaterally equal and reactive Chest: Normal effort breath sounds all over lung maria with rhonchi and crack les present in right lower and middle zone CVS: S1-S2 regular, no murmurs, no tachycardia, no gallops, no rubs Abdomen: Soft, nontender, no organomegaly, bowel sounds present Neuro: No focal deficits, no facial deformity, AO x3, power 5/5 in all limbs Data 06/02/23 13:05 06/02/23 13:05 Micro: Microbiology 06/02/23 15:40 Blood Culture - Preliminary Blood SPECIMEN COLLECTED 06/02/23 15:28 Blood Culture - Preliminary Blood SPECIMEN COLLECTED A&P Assessment and plan (1) Cough with hemoptysis: Most likely in setting of right-sided pneumonia. Seen on CTA. Pulmonary embolism ruled out on CTA. Tessalon Perles 200 twice daily, Robitussin as needed. DuoNebs every 6 hour (2) Pneumonia: Check sputum culture, blood culture, urine Legionella, bacterial antigen. Respiratory viral panel checked in ER negative. For now start empirically on treatment with community-acquired pneumonia with IV ceftriaxone and oral azithromycin. Does have a history of allergy with Keflex with diarrhea. Patient okay in trying ceftriaxone for now. Check MRSA swab. (3) COPD (chronic obstructive pulmonary disease): No acute exacerbation. DuoNebs. Hold off on steroids. (4) Acute kidney injury: Medical reconstruction done for for nephrotoxic drugs. Most likely in setting of dehydration along with infection and home medication including losartan and furosemide. Hold off on Lasix. Strict input output charting. D5 NS at 50 cc/h. (5) HTN (hypertension): Goal blood pressure less than 140/90 mmHg. Continue with home dose of carvedilol and losartan for now. (6) History of pulmonary embolism: Continue home dose of Coumadin. Check INR daily. (7) Hypernatremia: In setting of dehydration from poor oral intake and diarrhea. D5 NS at 50 cc/h for 1 bag. Watch for fluid overload. Monitor BMP daily for now. Plan Diarrhea: Most likely in setting of pneumonia. Check stool studies. Hydration as above. Full code Coumadin will suffice for DVT prophylaxis Protonix for PUD prophylaxis Attestations Medical Necessity Statement*: Admission for more than 2 midnights for management of patient admitted for community-acquired pneumonia with ongoing hemoptysis with history of pulmonary embolism on Coumadin in the past, acute kidney injury. Diagnoses Cough with hemoptysis R04.2 Pneumonia J18.9 COPD (chronic obstructive pulmonary disease) J44.9 Acute kidney injury N17.9 HTN (hypertension) I10 History of pulmonary embolism Z86.711 Hypernatremia E87.0
[2023-06-02 17:32] LABS: Reflex Lactate Order REFLEX LACTIC ORDERD
[2023-06-02] MEDS: cefTRIAXone 1,000 MG in sodium chloride 0.9% (plus) 50 ML 100 MG IV (17:35)
[2023-06-02 18:22] LABS: Vitamin B12 1709 pg/mL (232-1245)
[2023-06-02 18:56] LABS: Add Urine Microscopic? YES; Bilirubin Urine Neg (Negative); Blood Urine Neg (Negative); Glucose Urine UA Norm (Normal); Ketones Urine Negative (Negative); Leukocyte Esterase Urine 1+ (Negative); Nitrate Urine Negative (Negative); Protein Urine Neg (Negative); Specific Gravity, Urine 1.005 (1.005-1.030); Urine Appearance Clear (CLEAR); Urine Color Yellow (Yellow); Urobilinogen Urine Norm (Negative); pH Urine 5 (5-7)
[2023-06-02 18:57] LABS: Fine Granular Casts Urine 0-4 /lpf; Hyaline Casts Urine 0-4 /lpf; RBC Urine 0-4 /hpf (0-2); Squamous Epithelial Cell Urine 0-4 /hpf (0-5); WBC Urine 0-4 /hpf (0-5)
[2023-06-02 18:58] LABS: Add Urine Culture? No
--- NOTE | 2023-06-02 19:07 | ECG_ITS ---
[facility] Test Date: 2023-06-02 Pat Name: Zenobia Carrington Department: Room: 253 Gender: Female Supervisor Pile Driving: : 1940 Requested By: Fbaian Broussard Order Number: [id number] Mary MD: Eric Grace M.D. Measurements Intervals [place] Rate: 84 P: 61 DE: 246 QRS: -38 QRSD: 99 T: -9 QT: 382 QTc: 454 Interpretive Statements SINUS RHYTHM WITH FIRST DEGREE AV BLOCK LEFT AXIS DEVIATION [QRS AXIS < -30] MINIMAL VOLTAGE CRITERIA FOR LVH, CONSIDER NORMAL VARIANT [MEETS CRITERIA IN ONE OF: R(aVL), S(V1), R(V5), R(V5/V6)+S(V1)] ANTEROSEPTAL MYOCARDIAL INFARCTION , OF INDETERMINATE AGE [40+ ms Q WAVE IN V1-V4] Compared to ECG 06/02/2023 15:08:24 Left-axis deviation now present Myocardial infarct finding still present Electronically Signed On 06-03-2023 9:29:40 CDT by Eric Grace M.D. [email or web address] ([email or web address]) [email or web address] centerAerial [id number]
[2023-06-02 20:38] LABS: Lactic Acid level (Lactate) 1.3 mmol/L (0.5-2.2)
[2023-06-02] MEDS: famotidine 20 mg Tablet PO (20:41)
[2023-06-02] MEDS: losartan 50 mg Tablet PO (20:41)
[2023-06-02] MEDS: dextrose 5%-sod chloride 0.9% 1,000 ML 50 ML IV (20:44)
[2023-06-02] MEDS: benzonatate 100 mg Capsule 200 MG PO (20:45)
[2023-06-02] MEDS: ipratropium-albuterol 3 mL Neb INHALATION (20:55)
[2023-06-02 20:57] LABS: Iron 14 ug/dL (37-145); Percent Saturation 7.2 % (20-50); Total Iron Binding Capacity 194 mcg/dl; Troponin 5 6HR 111.2 ng/L (0-10); Unsaturated Iron Binding 180 ug/dL (112-347)
[2023-06-03] VITALS (11 sets, daily range): BP systolic 103–155; BP diastolic 52–81; PULSE 67–79; RESP 14–18; TEMP 36.7–37.2; O2SAT 92–97
[2023-06-03] MEDS: piperacillin-tazobactam 3.375 GM in sodium chloride 0.9% (plus) 50 ML IV ×4 (00:17→23:17)
[2023-06-03 04:49] LABS: Basophils # 0.1 10^3/uL (0.0-0.1); Basophils % 0.5 %; Eosinophils # 0.1 10^3/uL (0.0-0.8); Eosinophils % 0.6 %; Hematocrit 37.6 % (37.0-47.0); Hemoglobin 12.4 g/dL (11.5-15.3); Lymphocytes # 1.5 10^3/uL (0.8-4.8); Lymphocytes % 8.8 %; Mean Corpuscular Hemoglobin 30.2 pg (28.0-34.0); Mean Corpuscular Volume 91.5 fl (81-99); Mean Platelet Volume 12.6 fL (7.4-10.4); Monocytes # 1.2 10^3/uL (0.2-0.9); Monocytes % 7.1 %; Neutrophils # 13.85 10^3/uL (1.8-7.7); Nucleated Red Blood Cells % 0 %; Platelet Count 181 10^3/cmm (130-400); Red Blood Count 4.11 10^6/uL (4.1-5.3); Red Cell Distribution Width 13.8 % (12.1-15.1); White Blood Count 17.1 10^3/uL (4.0-10.0)
[2023-06-03 05:00] LABS: INR 2.78 (0.8-1.2)
[2023-06-03] MEDS: LORazepam 0.5 mg Tablet PO ×2 (05:02→23:17)
[2023-06-03 05:05] LABS: Estmated Average Glucose 120; Hemoglobin A1C 5.8 % (4.0-6.0)
[2023-06-03 05:26] LABS: Alanine Aminotransferase 16 U/L (0-33); Albumin Level 2.9 g/dL (3.5-5.2); Alkaline Phosphatase 65 U/L (35-105); Blood Urea Nitrogen 23 mg/dL (8-23); Calcium 8.6 mg/dL (8.5-10.5); Carbon Dioxide 23 mmol/L (22-29); Chloride 103 mmol/L (98-107); Chol HDL Ratio 1.78 mg/dL (0.0-4.40); Cholesterol 87 mg/dL (0-200); Globulin 2.8 g/dL (1.3-4.6); Glucose 103 mg/dL (65-115); HDL Cholesterol 49 mg/dL (60-100); LDL Cholesterol Calculated 23 mg/dL (50-129); LDL HDL Ratio 0.47 RATIO (0.00-3.22); Magnesium 1.7 mg/dL (1.7-2.3); Osmolality Calculated 288 mOsm/kg (285-295); Phosphorus 2.1 mg/dL (2.5-4.5); Sodium 137 mmol/L (136-145); Total Bilirubin 0.6 mg/dL (0.15-1.2); Total Protein 5.7 g/dL (6.6-8.7); Triglycerides 75 mg/dL (0-150)
[2023-06-03 05:30] LABS: Anion Gap 14.9 (5-19); Aspartate Amino Transferase 32 U/L (0-32); Potassium 3.9 mmol/L (3.5-5.1)
[2023-06-03 05:33] LABS: Procalcitonin 51.16 ng/mL (0-0.5)
[2023-06-03 06:24] LABS: Folate Level > 20.0 ng/mL (4.8-37.3)
[2023-06-03] MEDS: ipratropium-albuterol 3 mL Neb INHALATION ×2 (08:33→14:19)
[2023-06-03] MEDS: carvedilol 12.5 mg Tablet PO ×2 (08:50→16:57)
[2023-06-03] MEDS: atorvastatin 40 mg Tablet 20 MG PO (08:50)
[2023-06-03] MEDS: aspirin 81 mg EC Tablet PO (08:50)
[2023-06-03] MEDS: potassium chloride ER 20 mEq Tablet PO (08:50)
[2023-06-03] MEDS: azithromycin 250 mg Tablet 500 MG PO (08:51)
[2023-06-03] MEDS: benzonatate 100 mg Capsule 200 MG PO ×3 (08:51→21:12)
[2023-06-03] MEDS: famotidine 20 mg Tablet PO ×2 (08:53→16:56)
[2023-06-03] MEDS: gabapentin 300 mg Capsule PO ×2 (08:53→16:57)
[2023-06-03] MEDS: topiramate 25 mg Tablet PO (11:13)
[2023-06-03] MEDS: sodium chloride 0.9% 1,000 ML 50 ML IV (11:13)
--- NOTE | 2023-06-03 14:18 | P.PN_ITS ---
Subjective Subjective: No acute events overnight. Today morning examination patient sitting comfortably in bed. States cough is better but still continues to have blood- tinged sputum with each cough. Denies any nausea, vomiting, headache. States feeling slightly better. Has remained hemodynamically stable and afebrile. Denies any exertional chest pain but continues to have right-sided chest pain on taking deep inspiration. Blood work shows stable leukocytosis of 17,000 hemoglobin of 12.4, creatinine improving slightly to 1.1. Vitals/I&O/Wt Last Vital Signs Temp 98.1 F 06/03/23 11:46 Pulse 75 06/03/23 11:46 Resp 18 06/03/23 11:46 BP 155/81 06/03/23 11:46 Pulse Ox 97 06/03/23 11:46 O2 Del Method Room Air 06/03/23 11:46 06/02/23 06/03/23 06/03/23 22:59 06:59 14:59 Intake Total 540 / 540 50 / 590 960 / 960 Balance 540 / 540 50 / 590 960 / 960 Weight last 48 hrs Weight 63.049 kg Physical Exam Narrative: General: No acute distress, AO x3, HEENT: PERRLA, pupils bilaterally equal and reactive Chest: Normal effort breath sounds all over lung maria with rhonchi and crackles present in right lower and middle zone CVS: S1-S2 regular, no murmurs, no tachycardia, no gallops, no rubs Abdomen: Soft, nontender, no organomegaly, bowel sounds present Neuro: No focal deficits, no facial deformity, AO x3, power 5/5 in all limbs Data 06/03/23 04:30 06/03/23 04:30 Micro: Microbiology 06/02/23 22:58 MRSA Culture - Final Nose 06/02/23 15:40 Blood Culture - Preliminary Blood SPECIMEN COLLECTED 06/02/23 15:28 Blood Culture - Preliminary Blood SPECIMEN COLLECTED A&P Assessment and plan (1) Cough with hemoptysis: Most likely in setting of right-sided pneumonia. Seen on CTA. Pulmonary embolism ruled out on CTA. Tessalon Perles 200 twice daily, Robitussin as needed. DuoNebs every 6 hour as needed Oxygen supplementation to keep saturation over 90%. (2) Pneumonia: Blood cultures negative, sputum culture pending. Urine Legionella, bacterial antigen pending. Respiratory viral panel checked in ER negative. For now start empirically on treatment with community-acquired pneumonia with IV Zosyn and azithromycin given high severity of illness from leukocytosis and elevated procalcitonin Patient with advanced age. MRSA negative. (3) Acute kidney injury: Medical reconstruction done for for nephrotoxic drugs. Most likely in setting of dehydration along with infection and home medication including losartan and furosemide. Hold off on Lasix and losartan. Strict input output charting. Continue with normal saline at 50 cc/h. (4) Elevated troponin: Most likely type II [place] in setting of pneumonia. No active chest pain. Hold off on Plavix. Continue with aspirin, statin. Appreciate A1c, lipid panel. Warfarin switch to full dose Lovenox for now. Check echocardiogram. Of regional wall motion modality will plan for further ACS work-up. (5) HTN (hypertension): Goal blood pressure less than 140/90 mmHg. Continue with home dose of carvedilol. Holding off on losartan given LLOYD. Uptitrate medication as per goal blood pressures. (6) COPD (chronic obstructive pulmonary disease): No acute exacerbation. DuoNebs as needed. Hold off on steroids. (7) History of pulmonary embolism: INR therapeutic. Coumadin switched to full dose Lovenox for now given elevated troponins (8) Hypernatremia: Resolved. In setting of dehydration from poor oral intake and diarrhea. Fluids switched to NS at 50 cc/h. Watch for fluid overload. Monitor BMP daily for now. Plan Diarrhea: Most likely in setting of pneumonia. No further episodes after admission. Check stool studies. Hydration as above. 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
[2023-06-03] MEDS: ondansetron 2 mg/ML SDV 2 mL 4 MG IVP (20:53)
[2023-06-03] MEDS: enoxaparin 60 mg/0.6 mL Syringe SUBCUT (21:11)
[2023-06-04] VITALS (13 sets, daily range): BP systolic 137–187; BP diastolic 71–101; PULSE 65–74; RESP 14–18; TEMP 36.3–36.9; O2SAT 92–98
[2023-06-04 05:52] LABS: Basophils # 0.1 10^3/uL (0.0-0.1); Basophils % 0.6 %; Eosinophils # 0.4 10^3/uL (0.0-0.8); Eosinophils % 3.4 %; Hematocrit 39.1 % (37.0-47.0); Hemoglobin 12.6 g/dL (11.5-15.3); Lymphocytes # 1.8 10^3/uL (0.8-4.8); Lymphocytes % 16.1 %; Mean Corpuscular HGB Conc 32.2 g/dL (30.0-36.0); Mean Corpuscular Hemoglobin 29.9 pg (28.0-34.0); Mean Corpuscular Volume 92.7 fl (81-99); Mean Platelet Volume 13.5 fL (7.4-10.4); Monocytes # 0.7 10^3/uL (0.2-0.9); Monocytes % 6.7 %; Neutrophils # 8.07 10^3/uL (1.8-7.7); Neutrophils % 72.8 %; Nucleated Red Blood Cells % 0 %; Platelet Count 177 10^3/cmm (130-400); Red Blood Count 4.22 10^6/uL (4.1-5.3); Red Cell Distribution Width 13.9 % (12.1-15.1); White Blood Count 11.1 10^3/uL (4.0-10.0)
[2023-06-04 06:04] LABS: INR 2.05 (0.8-1.2)
[2023-06-04] MEDS: sodium chloride 0.9% 1,000 ML 50 ML IV (06:12)
[2023-06-04] MEDS: enoxaparin 60 mg/0.6 mL Syringe SUBCUT (06:15)
[2023-06-04 06:26] LABS: Alanine Aminotransferase 13 U/L (0-33); Albumin Level 3.1 g/dL (3.5-5.2); Alkaline Phosphatase 111 U/L (35-105); Anion Gap 11.7 (5-19); Aspartate Amino Transferase 22 U/L (0-32); Blood Urea Nitrogen 21 mg/dL (8-23); Calcium 8.5 mg/dL (8.5-10.5); Carbon Dioxide 24 mmol/L (22-29); Chloride 107 mmol/L (98-107); Globulin 2.5 g/dL (1.3-4.6); Glucose 90 mg/dL (65-115); Osmolality Calculated 291 mOsm/kg (285-295); Potassium 3.7 mmol/L (3.5-5.1); Sodium 139 mmol/L (136-145); Total Bilirubin 0.5 mg/dL (0.15-1.2); Total Protein 5.6 g/dL (6.6-8.7)
--- NOTE | 2023-06-04 06:35 | USCV_ITS ---
Zenobia Carrington Age: 82 Gender: F : 1940 Exam Date: 06/04/2023 10:20 Ordering Phys: Timothy Issa MD Technologist: BEATRICE Exam Location: [facility] [place] Indication: nstemi BP: / HR: 65 Rhythm: Sinus Technical Quality: Suboptimal MEASUREMENTS (Male / Female) Normal Values 2D ECHO LV Diastolic Diameter PLAX 5.5 cm 4.2 - 5.9 / 3.9 - 5.3 cm LV Systolic Diameter PLAX 4.0 cm IVS Diastolic Thickness 0.8 cm 0.6 - 1.0 / 0.6 - 0.9 cm IVS Systolic Thickness 1.3 cm LVPW Diastolic Thickness 0.8 cm 0.6 - 1.0 / 0.6 - 0.9 cm LVPW Systolic Thickness 1.3 cm LVOT Diameter 2.2 cm LV Ejection Fraction 2D Teich 53.3 % LV Ejection Fraction MOD 2C 35.6 % LV Ejection Fraction 2C AL 36.9 % LA Diameter 4.9 cm IVC Diameter 1.8 cm M-MODE Aortic Annulus Diameter 2.6 cm LA Ao Ratio MM 2.1 MV E Point Septal Separation 1.2 cm DOPPLER LVOT Peak Velocity 132.0 cm/s MV Area PHT 6.5 cm squared Mitral E to A Ratio 0.9 MV E' Velocity 44.5 cm/s Mitral E to MV E' Ratio 11.7 Mitral E to LV E' Lateral Ratio 9.0 Mitral E to LV E' Septal Ratio 16.8 TR Peak Velocity 222.8 cm/s TR Peak Gradient 19.8 mmHg Right Atrial Pressure 3.0 mmHg Pulmonary Artery Systolic Pressu 22.8 mmHg PV Peak Velocity 75.7 cm/s FINDINGS Left Ventricle The ventricle is poorly seen except in the apical view. It is likely normal in size with normal function. Ejection fraction is about 55 to 60%. Grade 1 diastolic dysfunction. Right Ventricle Normal right ventricular size and systolic function. Normal right ventricular systolic pressure. Right Atrium The right atrium is normal in size. Left Atrium The left atrium is normal in size. Mitral Valve Structurally normal mitral valve. Mild mitral annular calcification. No mitral valve stenosis. Mild mitral valve regurgitation. Aortic Valve Structurally normal trileaflet aortic valve. Mild aortic valve calcification. Aortic valve sclerosis without stenosis or regurgitation. Tricuspid Valve Structurally normal tricuspid valve. Mild tricuspid valve regurgitation. Pulmonic Valve Pulmonic valve not well visualized. Pericardium Normal pericardium without effusion. Aorta Normal ascending aorta dimension. IVC The inferior vena cava appears normal. CONCLUSIONS The ventricle is poorly seen except in the apical view. It is likely normal in size with normal function. Ejection fraction is about 55 to 60%. Grade 1 diastolic dysfunction. Structurally normal mitral valve. Mild mitral annular calcification. No mitral valve stenosis. Mild mitral valve regurgitation. There is no change from the previous study dated August 09, 2022. Dr. Ej Birmingham MD (Electronically Signed) Final Date: 05 June 2023 08:38 S
[2023-06-04] MEDS: acetaminophen 325 mg Tablet 650 MG PO (06:36)
[2023-06-04] MEDS: piperacillin-tazobactam 3.375 GM in sodium chloride 0.9% (plus) 50 ML IV ×3 (08:59→23:22)
[2023-06-04] MEDS: gabapentin 300 mg Capsule PO ×2 (09:00→17:13)
[2023-06-04] MEDS: topiramate 25 mg Tablet PO (09:00)
[2023-06-04] MEDS: carvedilol 12.5 mg Tablet PO ×2 (09:00→17:13)
[2023-06-04] MEDS: atorvastatin 40 mg Tablet 20 MG PO (09:00)
[2023-06-04] MEDS: aspirin 81 mg EC Tablet PO (09:00)
[2023-06-04] MEDS: famotidine 20 mg Tablet PO ×2 (09:01→17:13)
[2023-06-04] MEDS: azithromycin 250 mg Tablet 500 MG PO (09:01)
[2023-06-04] MEDS: potassium chloride ER 20 mEq Tablet PO (09:01)
[2023-06-04] MEDS: benzonatate 100 mg Capsule 200 MG PO ×3 (09:02→20:26)
[2023-06-04] MEDS: amlodipine 5 mg Tablet PO (11:55)
[2023-06-04] MEDS: warfarin 5 mg Tablet PO (13:31)
--- NOTE | 2023-06-04 14:32 | PM.PN ---
Subjective Subjective: No acute events overnight. Patient states she is feeling a lot better. Denies any nausea, vomiting, headache. States hemoptysis has improved quite a lot with occasional cough. Continues to have multiple episodes of diarrhea though stool still not collected. Remains on room air. Blood work shows resolution of leukocytosis down to 11,000, stable hemoglobin, CMP showing stable creatinine and liver function. Vitals/I&O/Wt Last Vital Signs Temp 97.7 F 06/04/23 11:56 Pulse 65 06/04/23 11:56 Resp 18 06/04/23 11:56 BP 182/82 06/04/23 11:56 Pulse Ox 98 06/04/23 11:56 O2 Del Method Room Air 06/04/23 11:56 06/03/23 06/04/23 06/04/23 22:59 06:59 14:59 Intake Total 1650 / 2660 999.167 / 3659.167 1010 / 1010 Balance 1650 / 2660 999.167 / 3659.167 1010 / 1010 Weight last 48 hrs Weight 67.177 kg Physical Exam Narrative: General: No acute distress, AO x3, HEENT: PERRLA, pupils bilaterally equal and reactive Chest: Normal effort breath sounds all over lung maria with rhonchi and crackles present in right lower and middle zone CVS: S1-S2 regular, no murmurs, no tachycardia, no gallops, no rubs Abdomen: Soft, nontender, no organomegaly, bowel sounds present Neuro: No focal deficits, no facial deformity, AO x3, power 5/5 in all limbs Data 06/04/23 04:24 06/04/23 04:24 Micro: Microbiology 06/02/23 16:51 Gram Stain - Final Sputum - Expectorated Sputum Sputum Culture - Preliminary 06/02/23 15:40 Blood Culture - Preliminary Blood NEGATIVE TO DATE 06/02/23 15:28 Blood Culture - Preliminary Blood NEGATIVE TO DATE 06/02/23 22:58 MRSA Culture - Final Nose A&P Assessment and plan (1) Cough with hemoptysis: Most likely in setting of right-sided pneumonia. Seen on CTA. Pulmonary embolism ruled out on CTA. Tessalon Perles 200 twice daily, Robitussin as needed. DuoNebs every 6 hour as needed Oxygen supplementation to keep saturation over 90%. (2) Pneumonia: Blood cultures negative, sputum culture pending. Urine Legionella, bacterial antigen pending. Respiratory viral panel checked in ER negative. For now start empirically on treatment with community-acquired pneumonia with IV Zosyn and azithromycin given high severity of illness from leukocytosis and elevated procalcitonin Patient with advanced age. MRSA negative. (3) Acute kidney injury: Medical reconstruction done for for nephrotoxic drugs. Most likely in setting of dehydration along with infection and home medication including losartan and furosemide. Hold off on Lasix and losartan. Strict input output charting. Continue with normal saline at 50 cc/h. (4) Elevated troponin: Most likely type II [place] in setting of pneumonia. No active chest pain. Hold off on Plavix. Continue with aspirin, statin. Appreciate A1c, lipid panel. Warfarin switch to full dose Lovenox for now. Check echocardiogram. Of regional wall motion modality will plan for further ACS work-up. (5) HTN (hypertension): Goal blood pressure less than 140/90 mmHg. Continue with home dose of carvedilol. Holding off on losartan given LLOYD. Uptitrate medication as per goal blood pressures. (6) COPD (chronic obstructive pulmonary disease): No acute exacerbation. DuoNebs as needed. Hold off on steroids. (7) History of pulmonary embolism: INR therapeutic. Coumadin switched to full dose Lovenox for now given elevated troponins (8) Hypernatremia: Resolved. In setting of dehydration from poor oral intake and diarrhea. Fluids switched to NS at 50 cc/h. Watch for fluid overload. Monitor BMP daily for now. Plan Diarrhea: Most likely in setting of pneumonia. No further episodes after admission. Check stool studies. Hydration as above. Full code Coumadin will suffice for DVT prophylaxis Protonix for PUD prophylaxis Plan for the day: Continue with Zosyn. Follow-up sputum culture. Restart home dose of warfarin. Stop Lovenox. Check INR daily. Send stool for stool studies to rule out C. difficile. If C. difficile negative will start on loperamide. Blood pressure elevated. Maintain blood pressure less than 140/90 mmHg. For now start patient on amlodipine 5 mg daily. LLOYD resolved. Restart home dose of losartan. Discharge plan: Plan to discharge in next 24 hours if patient continues to remain on room air and remains afebrile for next 24 hours on oral antibiotics. Attestations Medical Necessity Statement*: Requires further hospitalization for management of community-acquired pneumonia with hemoptysis in an elderly woman who lives by herself, resolving LLOYD, uncontrolled high blood pressure while further work-up for diarrhea was done. Diagnoses Cough with hemoptysis R04.2 Pneumonia J18.9 Acute kidney injury N17.9 Elevated troponin R77.8 HTN (hypertension) I10 COPD (chronic obstructive pulmonary disease) J44.9 History of pulmonary embolism Z86.711 Hypernatremia E87.0
[2023-06-04] MEDS: losartan 50 mg Tablet PO (17:13)
[2023-06-04] MEDS: ondansetron 2 mg/ML SDV 2 mL 4 MG IVP (20:03)
[2023-06-04] MEDS: LORazepam 0.5 mg Tablet PO (23:22)
[2023-06-05] VITALS (7 sets, daily range): BP systolic 163–174; BP diastolic 69–77; PULSE 64–70; RESP 15–18; TEMP 36.4–36.8; O2SAT 93–98
[2023-06-05 05:25] LABS: Basophils # 0.1 10^3/uL (0.0-0.1); Basophils % 1.1 %; Eosinophils # 0.5 10^3/uL (0.0-0.8); Hematocrit 40.1 % (37.0-47.0); Hemoglobin 12.9 g/dL (11.5-15.3); Lymphocytes % 22.6 %; Mean Corpuscular HGB Conc 32.2 g/dL (30.0-36.0); Mean Corpuscular Hemoglobin 30.1 pg (28.0-34.0); Mean Corpuscular Volume 93.5 fl (81-99); Mean Platelet Volume 12.3 fL (7.4-10.4); Monocytes # 0.5 10^3/uL (0.2-0.9); Monocytes % 5.9 %; Neutrophils # 5.61 10^3/uL (1.8-7.7); Neutrophils % 63.9 %; Nucleated Red Blood Cells % 0 %; Platelet Count 207 10^3/cmm (130-400); Red Blood Count 4.29 10^6/uL (4.1-5.3); Red Cell Distribution Width 13.9 % (12.1-15.1); White Blood Count 8.8 10^3/uL (4.0-10.0)
[2023-06-05 05:28] LABS: INR 2.07 (0.8-1.2)
[2023-06-05 05:40] LABS: Alanine Aminotransferase 13 U/L (0-33); Albumin Level 3.1 g/dL (3.5-5.2); Alkaline Phosphatase 59 U/L (35-105); Anion Gap 12.8 (5-19); Aspartate Amino Transferase 21 U/L (0-32); Blood Urea Nitrogen 12 mg/dL (8-23); Calcium 8.6 mg/dL (8.5-10.5); Carbon Dioxide 22 mmol/L (22-29); Chloride 110 mmol/L (98-107); Globulin 2.6 g/dL (1.3-4.6); Glucose 89 mg/dL (65-115); Osmolality Calculated 291 mOsm/kg (285-295); Potassium 3.8 mmol/L (3.5-5.1); Sodium 141 mmol/L (136-145); Total Bilirubin 0.4 mg/dL (0.15-1.2); Total Protein 5.7 g/dL (6.6-8.7)
[2023-06-05] MEDS: piperacillin-tazobactam 3.375 GM in sodium chloride 0.9% (plus) 50 ML IV (08:15)
[2023-06-05] MEDS: amlodipine 5 mg Tablet PO (08:16)
[2023-06-05] MEDS: azithromycin 250 mg Tablet 500 MG PO (08:16)
[2023-06-05] MEDS: aspirin 81 mg EC Tablet PO (08:16)
[2023-06-05] MEDS: benzonatate 100 mg Capsule 200 MG PO ×2 (08:16→14:14)
[2023-06-05] MEDS: atorvastatin 40 mg Tablet 20 MG PO (08:16)
[2023-06-05] MEDS: losartan 50 mg Tablet PO (08:18)
[2023-06-05] MEDS: carvedilol 12.5 mg Tablet PO (08:18)
[2023-06-05] MEDS: gabapentin 300 mg Capsule PO (08:18)
[2023-06-05] MEDS: potassium chloride ER 20 mEq Tablet PO (08:18)
[2023-06-05] MEDS: famotidine 20 mg Tablet PO (08:18)
[2023-06-05] MEDS: topiramate 25 mg Tablet PO (08:27)
--- NOTE | 2023-06-05 11:33 | PM.DCS ---
Discharge Providers Date of Admission: 06/02/23 16:33 Date of Discharge: June 05, 2023 Attending Provider at Admission: Jake Johnson MD Attending Provider at Discharge: Jake Johnson MD Primary Care Provider: Sunshine Aguilar Diagnoses at Discharge Discharge Diagnosis (1) Cough with hemoptysis: Status: Acute (2) Pneumonia: Status: Acute (3) Acute kidney injury: Status: Acute (4) Elevated troponin: Status: Acute (5) HTN (hypertension): Status: Chronic (6) COPD (chronic obstructive pulmonary disease): Status: Chronic (7) History of pulmonary embolism: Status: Acute (8) Hypernatremia: Status: Acute Reason for Visit Reason for Visit: coughing blood, chest pain in right lung Hospital Course Hospital Course Zenobia Carrington is a 82 year old female with past medical history of chronic pulmonary embolism, DVT on warfarin, LV dysfunction in past with most recent echocardiogram showing improvement with EF up to 60% with grade 2 diastolic dysfunction, hypertension, peripheral vascular disease who came to the ER with complaint of right-sided chest pain along with cough and hemoptysis ongoing for the last 2 days.? As per patient she was having some runny nose along with sinus infection last which improved but since Tuesday she has started having cough again.? Today is .? As per patient cough Getting worse over last 3 days with episode of hemoptysis which started on Tuesday night and again happened last night so she presented to the ER along with sharp right-sided chest pain.? Also complains of having multiple episodes of diarrhea for last 2 days along with poor oral intake. In the ER CTA was done which ruled out pulmonary embolism but was consistent with a right-sided pneumonia.? Patient was ordered for IV Levaquin and vancomycin.? At presentation her blood pressures were 83 systolics but on examination had improved to 120 systolics. Patient was admitted to the hospital for the evaluation and management of come to COVID-pneumonia with hemoptysis. On admission CTA was done which ruled out pulm embolism. She started on broad-spectrum antibiotics and antitussive medication. She responded well to the treatment and hemoptysis has resolved. On admission she did have some elevated troponins which trended down on 6-hour trend. Echocardiogram was done which ruled out regional wall motion abnormality. Patient did not have any chest pain during hospitalization. Patient was also found to have acute kidney injury and hyponatremia on admission which resolved with IV fluids. She has been discharged in medically stable condition on oral Augmentin and Levaquin for 3 days. Her antihypertensive regimen has been adjusted. She is to take amlodipine 10 mg daily along with her home regimen of antihypertensives before. She is to follow-up with the primary care provider within the next 10 days with a blood pressure diary for further adjustment of antihypertensives. Physical Exam Narrative: General: No acute distress, AO x3, HEENT: PERRLA, pupils bilaterally equal and reactive Chest: Normal effort breath sounds all over lung maria with rhonchi and crackles present in right lower and middle zone CVS: S1-S2 regular, no murmurs, no tachycardia, no gallops, no rubs Abdomen: Soft, nontender, no organomegaly, bowel sounds present Neuro: No focal deficits, no facial deformity, AO x3, power 5/5 in all limbs Discharge Data Studies Completed and Pending Completed Studies During Hospitalization Category Date Time Status CTA chest [CT angio chest PE protcl [id number]] Stat Cat Scan 06/02/23 13:45 Completed CV. echo limited [id number] Routine Ultrasound 06/04/23 06:35 Completed Pending at discharge Category Date Time Status Bacterial Antigen Stat Lab 06/03/23 14:27 Received Blood Culture Stat Lab 06/02/23 15:40 Results Clostridioides Difficile PCR Routine Lab 06/02/23 17:15 Results Enteric Bacterial Panel by PCR Routine Lab 06/02/23 17:15 Results Enteric Parasite Panel by PCR Routine Lab 06/02/23 17:15 Results Immunochemical Fecal OCB Routine Lab 06/02/23 17:15 Results Sputum Culture and Gram Stain Stat Lab 06/02/23 16:51 Results Laboratory Results WBC 8.8 10^3/uL (4.0-10.0) 06/05/23 04:43 RBC 4.29 10^6/uL (4.1-5.3) 06/05/23 04:43 Hgb 12.9 g/dL (11.5-15.3) 06/05/23 04:43 Hct 40.1 % (37.0-47.0) 06/05/23 04:43 MCV 93.5 fl (81-99) 06/05/23 04:43 MCH 30.1 pg (28.0-34.0) 06/05/23 04:43 MCHC 32.2 g/dL (30.0-36.0) 06/05/23 04:43 RDW 13.9 % (12.1-15.1) 06/05/23 04:43 Plt Count 207 10^3/cmm (130-400) 06/05/23 04:43 MPV 12.3 fL (7.4-10.4) H 06/05/23 04:43 Neut % (Auto) 63.9 % 06/05/23 04:43 Lymph % (Auto) 22.6 % 06/05/23 04:43 Armstrong % (Auto) 5.9 % 06/05/23 04:43 Eos % (Auto) 6.0 % 06/05/23 04:43 Baso % (Auto) 1.1 % 06/05/23 04:43 Neut # (Auto) 5.61 10^3/uL (1.8-7.7) 06/05/23 04:43 Lymph # (Auto) 2.0 10^3/uL (0.8-4.8) 06/05/23 04:43 Armstrong # (Auto) 0.5 10^3/uL (0.2-0.9) 06/05/23 04:43 Eos # (Auto) 0.5 10^3/uL (0.0-0.8) 06/05/23 04:43 Baso # (Auto) 0.1 10^3/uL (0.0-0.1) 06/05/23 04:43 Nucleated RBC % (auto) 0 % 06/05/23 04:43 Total Counted 100 (0-100) 06/02/23 13:05 Atypical Lymphs % 0.0 % (0-5) 06/02/23 13:05 Absolute Neutrophils 17.3 10^3/cmm (1.4-6.5) H 06/02/23 13:05 Segmented Neutrophils 66 % 06/02/23 13:05 Abs Segm Neuts (Man) 14.3 10/cmm (1.6-7.1) H 06/02/23 13:05 Band Neutrophils 14.0 % 06/02/23 13:05 Abs Band Neuts (Man) 3.0 10^3/cmm (0.0-1.2) H 06/02/23 13:05 Absolute Lymphocytes 2.4 10^3/cmm (1.2-3.4) 06/02/23 13:05 Lymphocytes (Manual) 11 % 06/02/23 13:05 Monocytes (Manual) 7.0 % 06/02/23 13:05 Absolute Monocytes 1.5 10^3/cmm (0.1-0.6) H 06/02/23 13:05 Eosinophils (Manual) 0 % 06/02/23 13:05 Absolute Eosinophils 0.0 10^3/cmm (0.0-0.7) 06/02/23 13:05 Basophils (Manual) 0.0 % 06/02/23 13:05 Absolute Basophils 0.0 10^3/cmm (0.0-0.2) 06/02/23 13:05 Metamyelocytes 0.0 % 06/02/23 13:05 Myelocytes 2.0 % 06/02/23 13:05 Promyelocytes 0.0 % 06/02/23 13:05 Nucleated RBCs 0.0 /100WBC (0-1) 06/02/23 13:05 Nucleated RBCs # 0.0 /100WBC 06/05/23 04:43 Dohle Bodies 3+ H 06/02/23 13:05 Platelet Estimate Normal (Normal) 06/02/23 13:05 PT 24.00 SECONDS (12.1-14.9) H 06/05/23 04:43 INR 2.07 (0.8-1.2) H 06/05/23 04:43 D-Dimer 1.09 ug/mIFEU (0-0.59) H 06/02/23 13:05 Sodium 141 mmol/L (136-145) 06/05/23 04:43 Potassium 3.8 mmol/L (3.5-5.1) 06/05/23 04:43 Chloride 110 mmol/L (98-107) H 06/05/23 04:43 Carbon Dioxide 22 mmol/L (22-29) 06/05/23 04:43 Anion Gap 12.8 (5-19) 06/05/23 04:43 BUN 12 mg/dL (8-23) 06/05/23 04:43 Creatinine 0.8 mg/dL (0.5-0.9) 06/05/23 04:43 GFR Calculation Not Reportable 06/05/23 04:43 Glucose 89 mg/dL (65-115) 06/05/23 04:43 Estimat Average Glucose 120 06/03/23 04:30 Hemoglobin A1c 5.8 % (4.0-6.0) 06/03/23 04:30 Calculated Osmolality 291 mOsm/kg (285-295) 06/05/23 04:43 Lactic Acid 2.1 mmol/L (0.5-2.2) 06/02/23 15:28 Lactic Acid (Sepsis) 1.3 mmol/L (0.5-2.2) 06/02/23 20:11 Calcium 8.6 mg/dL (8.5-10.5) 06/05/23 04:43 Phosphorus 2.1 mg/dL (2.5-4.5) L 06/03/23 04:30 Magnesium 1.7 mg/dL (1.7-2.3) 06/03/23 04:30 Iron 14 ug/dL (37-145) L 06/02/23 20:11 TIBC 194 mcg/dl 06/02/23 20:11 % Saturation 7.2 % (20-50) L 06/02/23 20:11 Unsat Iron Binding 180 ug/dL (112-347) 06/02/23 20:11 Total Bilirubin 0.4 mg/dL (0.15-1.2) 06/05/23 04:43 AST 21 U/L (0-32) 06/05/23 04:43 ALT 13 U/L (0-33) 06/05/23 04:43 Alkaline Phosphatase 59 U/L (35-105) 06/05/23 04:43 Troponin T Baseline 182 ng/L (0-10) H* 06/02/23 13:05 Troponin T 120 Minute 146.0 ng/L (0-10) H 06/02/23 15:28 Delta Troponin T -36.0 ABS# (0-10) L 06/02/23 15:28 Troponin T Hi Sens 6Hr 111.2 ng/L (0-10) H 06/02/23 20:11 Troponin T Hi Sens 6Hr Delta -70.8 ng/L (0-12) L 06/02/23 20:11 Total Protein 5.7 g/dL (6.6-8.7) L 06/05/23 04:43 Albumin 3.1 g/dL (3.5-5.2) L 06/05/23 04:43 Globulin 2.6 g/dL (1.3-4.6) 06/05/23 04:43 Triglycerides 75 mg/dL (0-150) 06/03/23 04:30 Cholesterol 87 mg/dL (0-200) 06/03/23 04:30 LDL Cholesterol, Calc 23 mg/dL (50-129) L 06/03/23 04:30 HDL Cholesterol 49 mg/dL (60-100) L 06/03/23 04:30 LDL/HDL Ratio 0.47 RATIO (0.00-3.22) 06/03/23 04:30 Cholesterol/HDL Ratio 1.78 mg/dL (0.0-4.40) 06/03/23 04:30 Vitamin B12 1709 pg/mL (232-1245) H 06/02/23 15:28 Folate Cancelled 06/03/23 04:30 Procalcitonin 51.16 ng/mL (0-0.5) H 06/03/23 04:30 TSH 2.60 uIU/mL (0.27-4.20) 06/02/23 20:11 Urine Color Yellow (Yellow) 06/02/23 18:33 Urine Appearance Clear (CLEAR) 06/02/23 18:33 Urine pH 5 (5-7) 06/02/23 18:33 Ur Specific [place] 1.005 (1.005-1.030) 06/02/23 18:33 Urine Protein Neg (Negative) 06/02/23 18:33 Urine Glucose (UA) Norm (Normal) 06/02/23 18:33 Urine Ketones Negative (Negative) 06/02/23 18:33 Urine Blood Neg (Negative) 06/02/23 18:33 Urine Nitrate Negative (Negative) 06/02/23 18:33 Urine Bilirubin Neg (Negative) 06/02/23 18:33 Urine Urobilinogen Norm mg/dL (Negative) 06/02/23 18:33 Ur Leukocyte Esterase 1+ (Negative) H 06/02/23 18:33 Urine RBC 0-4 /hpf (0-2) H 06/02/23 18:33 Urine WBC 0-4 /hpf (0-5) H 06/02/23 18:33 Ur Squamous Epith Cells 0-4 /hpf (0-5) H 06/02/23 18:33 Amorphous Sediment Not Reportable 06/02/23 18:33 Urine Bacteria None /hpf (NONE) 06/02/23 18:33 Hyaline Casts 0-4 /lpf H 06/02/23 18:33 Fine Granular Casts 0-4 /lpf H 06/02/23 18:33 Nasal Influ A H1 2009 PCR Not detected (NOT DETECT) 06/02/23 14:35 Adenovirus (PCR) Not detected (NOT DETECT) 06/02/23 14:35 C. pneumoniae DNA (PCR) Not detected (NOT DETECT) 06/02/23 14:35 Coronavirus 229E (PCR) Not detected (NOT DETECT) 06/02/23 14:35 Human Metapneumovir PCR Not detected (NOT DETECT) 06/02/23 14:35 Influenza A (H1) PCR Not detected (NOT DETECT) 06/02/23 14:35 Influenza A (H3) PCR Not detected (NOT DETECT) 06/02/23 14:35 Influenza Type A (PCR) Not detected (NOT DETECT) 06/02/23 14:35 Influenza Type B (PCR) Not detected (NOT DETECT) 06/02/23 14:35 M. pneumoniae (PCR) Not detected (NOT DETECT) 06/02/23 14:35 Parainfluenza 1 (PCR) Not detected (NOT DETECT) 06/02/23 14:35 Parainfluenza 2 (PCR) Not detected (NOT DETECT) 06/02/23 14:35 Parainfluenza 3 (PCR) Not detected (NOT DETECT) 06/02/23 14:35 Parainfluenza 4 (PCR) Not detected (NOT DETECT) 06/02/23 14:35 RSV Type A (PCR) Not detected (NOT DETECT) 06/02/23 14:35 RSV Type B (PCR) Not detected (NOT DETECT) 06/02/23 14:35 Entero/Rhino (PCR) Not detected (NOT DETECT) 06/02/23 14:35 SARS-CoV-2 (PCR) Not detected (NOT DETECT) 06/02/23 14:35 Imaging Echo: Radiologist's impression: ?CONCLUSIONS ?The ventricle is poorly seen except in the apical view.? It is ?likely normal in size with normal function.? Ejection fraction ?is about 55 to 60%.? Grade 1 diastolic dysfunction. ?Structurally normal mitral valve. Mild mitral annular ?calcification. No mitral valve stenosis. Mild mitral valve ?regurgitation. ?There is no change from the previous study dated August 09, ?2021. ?Dr. Ej Birmingham MD ?(Electronically Signed) ?Final Date:? ? ? 05 June 2023 ? 08:38 S CTA Chest: Radiologist's impression: IMPRESSION: 1.? Proximal main pulmonary arteries are normal. Normal segmental and subsegmental pulmonary arteries. No evidence of pulmonary embolus. 2.? Wedge-shaped consolidation measuring 4.4 x 2.7 cm within the right middle lobe with air bronchograms and hazy groundglass opacities laterally suspicious for pneumonia. Recommend follow-up to resolution and consider follow-up with bronchoscopy to exclude underlying lesion. 3.? Trace right pleural fluid with right basal atelectasis. 4.? Prior cholecystectomy. 5.? Tiny esophageal hernia. 6.? Cardiomegaly. Vitals Last Vital Signs Temp 97.5 F L 06/05/23 07:21 Pulse 64 06/05/23 10:05 Resp 15 06/05/23 10:05 BP 174/77 06/05/23 08:18 Pulse Ox 98 06/05/23 10:05 O2 Del Method Room Air 06/05/23 10:05 Discharge Plan Discharge Patient Disposition: Home Condition: Stable Prescriptions: New amlodipine 5 mg Tablet 10 mg PO DAILY Qty: 60 0RF benzonatate 100 mg Capsule 200 mg PO TID Qty: 12 0RF loperamide 2 mg Capsule 2 mg PO QID PRN (Reason: Diarrhea) Qty: 12 0RF Augmentin 500-125 mg tablet 1 tab PO BID Qty: 6 0RF levofloxacin 750 mg tablet 750 mg PO Q24H 4 Days Qty: 4 0RF Continued aspirin [Adult Low Dose Aspirin] 81 mg tablet,delayed release (DR/EC) 81 mg PO DAILY magnesium oxide 500 mg capsule 500 mg PO DAILY topiramate 25 mg tablet 25 mg PO DAILY cholecalciferol (vitamin D3) 25 mcg (1,000 unit) capsule 1,000 unit PO DAILY ascorbic acid (vitamin C) 500 mg capsule 500 mg PO DAILY potassium chloride 10 mEq tablet extended release 20 meq PO DAILY famotidine 20 mg tablet 20 mg PO BID atorvastatin 20 mg tablet 20 mg PO DAILY losartan 50 mg tablet 50 mg PO BID Qty: 60 6RF furosemide 20 mg tablet 20 mg PO DAILY Qty: 90 3RF carvedilol 6.25 mg tablet 12.5 mg PO BID Qty: 180 3RF Rx Instructions: must administer with a meal/food warfarin 5 mg tablet 5 mg PO DAILY lorazepam 1 mg tablet 0.5 - 1 mg PO QPM gabapentin 300 mg capsule 300 mg PO BID Women's 50 Plus Multivitamin 400 mcg-500 mg calcium-20 mcg Tablet 1 tab PO DAILY Discharge Orders: Discharge Order (Routine); Ordered 06/05/23 Ordered By: Jake Johnson Referrals: Sunshine Aguilar FNP [Primary Care Provider] - 7-10 days (Please call Tuesday to schedule an appointment with Sunshine Aguilar.) Patient Instructions: Loperamide (By mouth), Amoxicillin/Clavulanate Potassium (By mouth), Amlodipine (By mouth), Levofloxacin (By mouth), Pneumonitis (DC), Opioid Safety, Pneumonia Stoplight Activity Restrictions/Additional Instructions: Take Augmentin recommends IV antibiotics for next 3 days. Please check your blood pressure daily at home maintain a blood pressure diary. Amlodipine 10 mg has been added to her medication list. You should follow-up with the primary care provider within the next 10 days for further adjustment of antihypertensives. Please follow-up with a blood pressure diary when you go to meet your primary care provider. Discharge Attestations Time Spent in Discharge Care*: greater than 30 min Specific Discharge Activities: educating patient, discussing with pcp/other providers, discussing with protective services case worker/social workers/dc planners, documenting/other paperwork and evaluating patient/reviewing data Status at Discharge: Cognitive status at discharge: cognitively intact, Behavioral status at discharge: cooperative, Functional status at discharge: independent ambulation, Overall status at discharge: patient is back to baseline Quality Metrics Clinical Quality Measures [ No reported AMI, CVA or VTE this stay] Coding Level of Care Code 76121 Total time (in minutes) for Discharge: 50 Diagnoses Cough with hemoptysis R04.2 Pneumonia J18.9 Acute kidney injury N17.9 Elevated troponin R77.8 HTN (hypertension) I10 COPD (chronic obstructive pulmonary disease) J44.9 History of pulmonary embolism Z86.711 Hypernatremia E87.0
[2023-06-05] MEDS: loperamide 2 mg Capsule PO (11:44)
--- NOTE | 2023-06-05 11:47 | PC.SOCIAL ---
IMM update IMM updated with patient. Verbalized an understanding. Copy pg 2 provided. Initialled, dated, timed, and placed in chart.
[2023-06-05] MEDS: warfarin 5 mg Tablet PO (14:14)
== END 2023-06-05 14:30 | disposition home or self-care (01) | DRG 193 ==
LOC: ER 16:31 → MEDSURG 19:27
PROVIDERS: Emergency Medicine; Admitting Provider Student in an Organized Health Care Education/Training Program; Emergency Provider Emergency Medicine; PCP Nurse Practitioner Family; Visit Provider Student in an Organized Health Care Education/Training Program
DX: J18.9 Pneumonia, unspecified organism (principal); I21.A1 Myocardial infarction type 2; E87.1 Hypo-osmolality and hyponatremia; I13.0 Hypertensive heart and chronic kidney disease with heart failure and stage 1 through stage 4 chronic kidney disease, or unspecified chronic kidney disease; J44.0 Chronic obstructive pulmonary disease with (acute) lower respiratory infection; I50.22 Chronic systolic (congestive) heart failure; N17.9 Acute kidney failure, unspecified; Z86.711 Personal history of pulmonary embolism; Z86.718 Personal history of other venous thrombosis and embolism; N18.9 Chronic kidney disease, unspecified; I73.9 Peripheral vascular disease, unspecified; Z79.82 Long term (current) use of aspirin; Z79.01 Long term (current) use of anticoagulants; F41.9 Anxiety disorder, unspecified; Z86.73 Personal history of transient ischemic attack (TIA), and cerebral infarction without residual deficits; E78.5 Hyperlipidemia, unspecified; Z87.891 Personal history of nicotine dependence; E86.0 Dehydration
CPT/HCPCS: 36415; 71275; 80053; 80061; 81001; 82274; 82607; 82746; 83036; 83540; 83550; 83605; 83630; 83735; 84100; 84145; 84443; 84484; 85007; 85025; 85378; 85610; 86403; 87040; 87070; 87205; 87449; 87486; 87493; 87506; 87581; 87633; 87641; 93005; 93308; 94640; 94664; 96372; J0696; J1650; J1956; J2270; J2405; J2543; J7030; J7042; Q0144; Q9967

== ENCOUNTER → 2024-04-10 13:30 | Outpatient (BNVA) | payer MEDICARE, SELFPAY | PROVIDERS: PCP Nurse Practitioner Family; Visit Provider Dermatology | DX: C44.619 Basal cell carcinoma of skin of left upper limb, including shoulder (principal); Z85.828 Personal history of other malignant neoplasm of skin; L82.1 Other seborrheic keratosis; L81.4 Other melanin hyperpigmentation; L82.0 Inflamed seborrheic keratosis | CPT/HCPCS: 17110; 17261; 99203 ==

== ENCOUNTER 2025-03-27 13:26 | Emergency (ER) | payer MEDICARE, SELFPAY ==
[2025-03-27 13:28] VITALS: BP 141/71; PULSE 50; RESP 16; TEMP 36.8; O2SAT 93; BMI 21.6
--- NOTE | 2025-03-27 13:37 | ECG_ITS ---
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[id number] Requested By: Luca Osman Order Number: [id number] Reading MD: DEMARIO RENEE Measurements Intervals Hoffman Rate: 56 P: 85 ND: 213 QRS: -24 QRSD: 100 T: 13 QT: 454 QTc: 439 Interpretive Statements SINUS BRADYCARDIA WITH FIRST DEGREE AV BLOCK WITH OCCASIONAL VENTRICULAR PREMATURE COMPLEXES SEPTAL MYOCARDIAL INFARCTION , PROBABLY OLD [40+ ms Q WAVE IN V1/V2] Compared to ECG 06/02/2023 19:07:04 Ventricular premature complex(es) now present Sinus rhythm no longer present Left-axis deviation no longer present Myocardial infarct finding still present Electronically Signed On 03-27-2025 22:51:56 CDT by DEMARIO RENEE [email or web address]
--- NOTE | 2025-03-27 13:37 | XR_ITS ---
WS: [id number] XR chest 1V portable [id number] REASON FOR EXAM: chest pain FINDINGS: The chest is unchanged compared to 01/21/2022. Moderate tortuosity and ectasia of the thoracic aorta. The heart is at the upper limits of normal in size. Calcified granulomatous disease bilaterally. No acute pulmonary parenchymal or pleural abnormality. Right shoulder configuration indicating complete tear of the rotator cuff tendon. Significant degenerative spondylosis in the lower thoracic spine. XR/XR chest 1V portable [id number] IMPRESSION: Stable chest without acute abnormality.
--- NOTE | 2025-03-27 13:37 | W.ED.CHESTPA ---
HPI - Chest Pain General: Chief Complaint: Chest Pain Stated Complaint: chest pain Time Seen by Provider: 03/27/25 13:37 History of Present Illness: 84-year-old female presents emergency room complaining of an episode of chest discomfort. She got lightheaded and dizzy as well. She has a history of PE she is on anticoagulation chronic kidney disease and coronary artery disease as well as hypertension on arrival here she is pain-free has had no further symptoms she did receive a single nitro resolves her symptoms. She denies any recent fever sweats chills productive cough no abdominal pain. No orthopnea or PND. Associated symptoms: Deny abdominal pain, dyspnea or fever(s) Related Data Home Medications ?Medication ?Instructions ?Recorded ?Confirmed aspirin 81 mg tablet,delayed 81 mg PO DAILY 01/17/20 03/27/25 release (Adult Low Dose Aspirin) cholecalciferol (vitamin D3) 25 1,000 unit PO DAILY 01/17/20 03/27/25 mcg (1,000 unit) capsule magnesium oxide 500 mg capsule 500 mg PO DAILY 01/17/20 03/27/25 topiramate 25 mg tablet 25 mg PO DAILY 01/17/20 03/27/25 lorazepam 1 mg tablet 0.5 - 1 mg PO QPM 06/02/23 03/27/25 [id number] ac 400 1 tab PO DAILY 06/02/23 03/27/25 mcg-calcium carb 500 mg-vit K1 20 mcg tablet (Women's 50 Plus Multivitamin) warfarin 5 mg tablet 5 mg PO .@LUNCH 06/02/23 03/27/25 amlodipine 5 mg tablet 5 mg PO DAILY 03/27/25 03/27/25 carvedilol 12.5 mg tablet 12.5 mg PO BID 03/27/25 03/27/25 famotidine 40 mg tablet 40 mg PO BID 03/27/25 03/27/25 furosemide 40 mg tablet 40 mg PO BID PRN edema 03/27/25 03/27/25 potassium chloride 20 mEq 20 meq PO DAILY PRN Edema 03/27/25 03/27/25 tablet,extended release(part/cryst) Previous Rx's ?Medication ?Instructions ?Recorded losartan 50 mg tablet 50 mg PO BID #60 tabs 01/27/21 amlodipine 10 mg tablet 10 mg PO DAILY #30 tabs 03/27/25 Allergies Allergy/AdvReac Type Severity Reaction Status Date / Time Tetracyclines Allergy Severe Passed out Verified 03/27/25 12:00 cephalexin (From Keflex) Allergy Intermediate Nausea, Verified 03/27/25 12:00 diarrhea, vomiting Sulfa (Sulfonamide Allergy Intermediate Hives Verified 03/27/25 12:00 Antibiotics) fluticasone (From Flonase) Allergy Mild Rash Verified 03/27/25 12:00 lisinopril Allergy Mild Rash Verified 03/27/25 12:00 Review of Systems Const: Denies: fever(s) or chills Card: Reports: chest pain Resp: Denies: dyspnea GI: Denies: abdominal pain : Denies: dysuria, urinary frequency or urinary urgency Musc: Denies: neck pain or back pain Skin/Breast: Denies: rash PFSH ED PFSH: Medical History Chest pain Angina pectoris, unspecified Plantar fasciitis Pulmonary embolism Hyperlipidemia Anxiety Migraine First degree atrioventricular block Asthma COPD (chronic obstructive pulmonary disease) GERD (gastroesophageal reflux disease) CKD (chronic kidney disease) History of TIA (transient ischemic attack) X7 Systolic heart failure EF of 46% which has improved to 60% HTN (hypertension) History of pulmonary embolism PVD (peripheral vascular disease) Surgical History S/P hysterectomy S/P cataract surgery S/P cholecystectomy S/P rotator cuff repair X3 right S/P knee surgery Family History Father Diabetes Mother Stroke Family/Other Cancer Brother , CVA Stroke Social History Smoking and tobacco/nicotine status: former use of tobacco/nicotine (quit 50 yearsago) Alcohol intake: never Adopted: No Caregiver/support person: Yes Lives independently: Yes Household members: none Housing: House Physical Exam Const: GENERAL APPEARANCE: cooperative ORIENTATION/CONSCIOUSNESS: Yes awake, Yes oriented to person, Yes oriented to place and Yes oriented to time HENMT: COMMON NORMALS: normocephalic, atraumatic and hearing grossly normal bilaterally HEAD & SCALP: normocephalic and atraumatic Resp: COMMON NORMALS: normal respiratory effort, No retractions, No use of accessory muscles and clear to auscultation bilaterally AUSCULTATION: clear to auscultation bilaterally Cardio: COMMON NORMALS: regular rhythm and No murmurs present (Cardio) RATE: bradycardic RHYTHM: regular rhythm GI: COMMON NORMALS: Soft to palpation and No hepatosplenomegaly present AUSCULTATION: Yes normoactive bowel sounds PALPATION: Yes Soft to palpation, No Tenderness to palpation present (GI), No Guarding due to palpation present (GI) and Yes No hepatosplenomegaly present Extremity: COMMON NORMALS: normal to inspection, capillary refill normal, no clubbing, cyanosis or edema, no calf tenderness and no pedal edema Neuro: SENSORIUM/ORIENTATION: Yes oriented to person, Yes oriented to place and Yes oriented to time Skin: COMMON NORMALS: no rashes or lesions noted GENERAL SKIN EXAM: no rashes or lesions noted Course Vital Signs: Vital signs: Vital Signs Temperature 98.3 F 03/27/25 13:28 Pulse Rate 59 L 03/27/25 16:13 Respiratory Rate 17 03/27/25 15:46 Blood Pressure 162/63 03/27/25 16:13 Pulse Oximetry 96 03/27/25 15:46 Oxygen Delivery Me thod Room Air 03/27/25 15:46 MDM - Chest Pain Medical Decision Making No further symptoms EKGs did not show any acute changes cardiac enzymes trending negative. She was bradycardic while she was here we will have her decrease her carvedilol to 6.25 p.o. twice daily increase amlodipine to 10 mg daily continue her other medications and follow-up with her primary care doctor within a week we will set her up for an outpatient Lexiscan sestamibi stress test Medical Records Echocardiogram May 2023 CONCLUSIONS The ventricle is poorly seen except in the apical view. It is likely normal in size with normal function. Ejection fraction is about 55 to 60%. Grade 1 diastolic dysfunction. Structurally normal mitral valve. Mild mitral annular calcification. No mitral valve stenosis. Mild mitral valve regurgitation. There is no change from the previous study dated August 09, 2022. Lab Data 03/27/25 13:35 03/27/25 13:35 Radiology Impressions Chest X-Ray 03/27/25 13:37 IMPRESSION: Stable chest without acute abnormality. Laboratory Results WBC 5.80 10^3/uL (3.29-11.43) 03/27/25 13:35 RBC 4.50 10^6/uL (3.85-5.65) 03/27/25 13:35 Hgb 13.80 g/dL (11.27-16.99) 03/27/25 13:35 Hct 42.0 % (36-47) 03/27/25 13:35 MCV 93.3 fl (85-98) 03/27/25 13:35 MCH 30.7 pg (27-33) 03/27/25 13:35 MCHC 32.9 g/dL (30-55) 03/27/25 13:35 RDW 13.2 % (12.1-15.1) 03/27/25 13:35 Plt Count 157 10^3/cmm (157-399) 03/27/25 13:35 MPV 13.2 fL (7.4-10.4) H 03/27/25 13:35 Neut % (Auto) 50.8 % 03/27/25 13:35 Lymph % (Auto) 31.4 % 03/27/25 13:35 Lamb % (Auto) 13.1 % 03/27/25 13:35 Eos % (Auto) 2.8 % 03/27/25 13:35 Baso % (Auto) 1.7 % 03/27/25 13:35 Neut # (Auto) 2.95 10^3/uL (1.8-7.7) 03/27/25 13:35 Lymph # (Auto) 1.8 10^3/uL (0.8-4.8) 03/27/25 13:35 Lamb # (Auto) 0.8 10^3/uL (0.2-0.9) 03/27/25 13:35 Eos # (Auto) 0.2 10^3/uL (0.0-0.8) 03/27/25 13:35 Baso # (Auto) 0.1 10^3/uL (0.0-0.1) 03/27/25 13:35 Nucleated RBC % (auto) 0 % 03/27/25 13:35 Nucleated RBCs # 0.0 /100WBC 03/27/25 13:35 Sodium 139 mmol/L (136-145) 03/27/25 13:35 Potassium 3.9 mmol/L (3.5-5.1) 03/27/25 13:35 Chloride 103 mmol/L (98-107) 03/27/25 13:35 Carbon Dioxide 24 mmol/L (22-29) 03/27/25 13:35 Anion Gap 15.9 (5-19) 03/27/25 13:35 BUN 15 mg/dL (8-23) 03/27/25 13:35 Creatinine 1.0 mg/dL (0.5-0.9) H 03/27/25 13:35 GFR Calculation Not Reportable 03/27/25 13:35 Glucose 103 mg/dL (65-115) 03/27/25 13:35 Calculated Osmolality 289 mOsm/kg (285-295) 03/27/25 13:35 Calcium 9.3 mg/dL (8.5-10.5) 03/27/25 13:35 Total Bilirubin 0.4 mg/dL (0.15-1.2) 03/27/25 13:35 AST 24 U/L (0-32) 03/27/25 13:35 ALT 13 U/L (0-33) 03/27/25 13:35 Alkaline Phosphatase 59 U/L (35-105) 03/27/25 13:35 Troponin T Baseline 12 ng/L (0-10) H 03/27/25 13:35 Troponin T 120 Minute 12.73 ng/L (0-10) H 03/27/25 15:30 Delta Troponin T 0.73 ABS# (0-10) 03/27/25 15:30 Total Protein 6.2 g/dL (6.6-8.7) L 03/27/25 13:35 Albumin 4.1 g/dL (3.5-5.2) 03/27/25 13:35 Globulin 2.1 g/dL (1.3-4.6) 03/27/25 13:35 All radiology interpretation(s) finalized by discharge EKG Data EKG 1: Interpretation: EKG March 27, 2025 1332 sinus bradycardia first-degree AV block with a VT interval of 213 rate of 56 QT interval of 454 there is no acute ST changes noted occasional PVCs noted. Compared to EKG 06/02/2023 no significant changes EKG 2: Interpretation: EKG 03/27/2025 1513 sinus bradycardia with first-degree AV block. Heart rate of 52 VT interval 223. Q waves in V1 and [address] changes noted Discharge Plan Discharge Patient Disposition: Home Clinical Impression: Bradycardia, Atypical chest pain, Hypertension Clinical Impression: (Ruled Out): Asthma Condition: Stable Prescriptions: New amlodipine 10 mg tablet 10 mg PO DAILY Qty: 30 0RF No Action aspirin [Adult Low Dose Aspirin] 81 mg tablet,delayed release (DR/EC) 81 mg PO DAILY magnesium oxide 500 mg capsule 500 mg PO DAILY topiramate 25 mg tablet 25 mg PO DAILY cholecalciferol (vitamin D3) 25 mcg (1,000 unit) capsule 1,000 unit PO DAILY amlodipine 5 mg tablet 5 mg PO DAILY furosemide 40 mg tablet 40 mg PO BID PRN (Reason: edema) carvedilol 12.5 mg tablet 12.5 mg PO BID losartan 50 mg tablet 50 mg PO BID Qty: 60 6RF warfarin 5 mg tablet 5 mg PO .@LUNCH lorazepam 1 mg tablet 0.5 - 1 mg PO QPM Women's 50 Plus Multivitamin 400 mcg-500 mg calcium-20 mcg Tablet 1 tab PO DAILY famotidine 40 mg tablet 40 mg PO BID potassium chloride 20 mEq tablet,ER particles/crystals 20 meq PO DAILY PRN (Reason: Edema) Discharge Orders: Discharge ED (Routine); Ordered 03/27/25 Ordered By: Luca Carcamo Referrals: Sunshine Aguilar FNP [Referring, Family Practice] Discharge Diet: Usual diet Discharge Activity: Increase activity as tolerated Patient Instructions: Opioid Safety, Pain Management Activity Restrictions/Additional Instructions: Thank you for choosing [facility] for your healthcare needs today. It is very important that you follow up as instructed or that you return to the Emergency Department should you have concerns or if your condition changes or worsens in any way. You were seen in the emergency room with complaints of chest discomfort and lightheadedness dizziness. You are noted to have slow heart rate. Recommend you decrease your carvedilol to 6.25 twice daily, increase your amlodipine to 10 mg daily and follow-up with your primary care doctor within the next week. Case management will make arrangements for you to have an outpatient stress test. Print Language: German Coding Level of Care Code ED [employer] Manager for Milagros Lafleur
[2025-03-27 13:45] LABS: Basophils # 0.1 10^3/uL (0.0-0.1); Basophils % 1.7 %; Eosinophils # 0.2 10^3/uL (0.0-0.8); Eosinophils % 2.8 %; Lymphocytes # 1.8 10^3/uL (0.8-4.8); Lymphocytes % 31.4 %; Mean Corpuscular HGB Conc 32.9 g/dL (30-55); Mean Corpuscular Hemoglobin 30.7 pg (27-33); Mean Corpuscular Volume 93.3 fl (85-98); Mean Platelet Volume 13.2 fL (7.4-10.4); Monocytes # 0.8 10^3/uL (0.2-0.9); Monocytes % 13.1 %; Neutrophils # 2.95 10^3/uL (1.8-7.7); Neutrophils % 50.8 %; Nucleated Red Blood Cells % 0 %; Platelet Count 157 10^3/cmm (157-399); Red Cell Distribution Width 13.2 % (12.1-15.1)
[2025-03-27 13:53] VITALS: BP 132/57; PULSE 53; RESP 15; O2SAT 97
[2025-03-27 14:06] LABS: Alanine Aminotransferase 13 U/L (0-33); Albumin Level 4.1 g/dL (3.5-5.2); Alkaline Phosphatase 59 U/L (35-105); Anion Gap 15.9 (5-19); Aspartate Amino Transferase 24 U/L (0-32); Blood Urea Nitrogen 15 mg/dL (8-23); Calcium 9.3 mg/dL (8.5-10.5); Carbon Dioxide 24 mmol/L (22-29); Chloride 103 mmol/L (98-107); Creatinine Clr Calc Pharmacy 34.1542; Globulin 2.1 g/dL (1.3-4.6); Glucose 103 mg/dL (65-115); Osmolality Calculated 289 mOsm/kg (285-295); Potassium 3.9 mmol/L (3.5-5.1); Sodium 139 mmol/L (136-145); Total Bilirubin 0.4 mg/dL (0.15-1.2); Total Protein 6.2 g/dL (6.6-8.7)
[2025-03-27 14:07] LABS: Troponin(5th) Baseline 12 ng/L (0-10)
[2025-03-27 14:11] LABS: Slide Review Slide Review Perform
[2025-03-27] MEDS: sodium chloride 0.9% 500 ML IV (14:23)
[2025-03-27 14:54] VITALS: BP 159/63; PULSE 62; RESP 16; O2SAT 95
--- NOTE | 2025-03-27 15:37 | ECG_ITS ---
[facility] Test Date: 2025-03-27 Pat Name: Zenobia Carrington Department: Room: Gender: Female Pot Puncher: : 1940 Requested By: Luca Osman Order Number: [id number] Reading MD: DEMARIO RENEE Measurements Intervals [place] Rate: 52 P: 65 CA: 223 QRS: -22 QRSD: 98 T: 7 QT: 443 QTc: 413 Interpretive Statements SINUS BRADYCARDIA WITH FIRST DEGREE AV BLOCK WITH OCCASIONAL VENTRICULAR PREMATURE COMPLEXES LOW QRS VOLTAGE IN PRECORDIAL LEADS [QRS DEFLECTION < 1.0 mV IN CHEST LEADS] SEPTAL MYOCARDIAL INFARCTION , PROBABLY OLD [40+ ms Q WAVE IN V1/V2] Compared to ECG 03/27/2025 13:32:22 Low QRS voltage now present Myocardial infarct finding still present Electronically Signed On 03-27-2025 23:08:57 CDT by DEMARIO RENEE [email or web address]
--- NOTE | 2025-03-27 15:38 | PC.PHAR ---
Pt's Amlodipine 5 mg was listed as twice daily and pt states she takes only once daily. [facility] in [place] fills the rx as Amlodipine 5mg once daily. Corrected on pts' chart.
[2025-03-27 15:46] VITALS: BP 141/67; PULSE 60; RESP 17; O2SAT 96
[2025-03-27 16:13] VITALS: BP 161/79; BP 162/63; BP 169/87; PULSE 59; PULSE 62; PULSE 67
[2025-03-27 16:17] LABS: Troponin 5 2HR 12.73 ng/L (0-10); Troponin 5 2HR Delta 0.73 ABS# (0-10)
--- NOTE | 2025-03-29 09:42 | DCPLANNER ---
messaged heart care for er f/u
== END 2025-03-27 16:40 | disposition home or self-care (01) ==
PROVIDERS: Emergency Provider Family Medicine
DX: R00.1 Bradycardia, unspecified (principal); R07.89 Other chest pain; I10 Essential (primary) hypertension; Z79.82 Long term (current) use of aspirin; Z79.01 Long term (current) use of anticoagulants; Z87.891 Personal history of nicotine dependence; Z86.73 Personal history of transient ischemic attack (TIA), and cerebral infarction without residual deficits; J44.9 Chronic obstructive pulmonary disease, unspecified; I13.0 Hypertensive heart and chronic kidney disease with heart failure and stage 1 through stage 4 chronic kidney disease, or unspecified chronic kidney disease; N18.9 Chronic kidney disease, unspecified; I50.20 Unspecified systolic (congestive) heart failure
CPT/HCPCS: 36415; 71045; 80053; 84484; 85025; 93005; 99285; J7040

== ENCOUNTER → 2025-05-21 10:46 | Outpatient (BNVA) | payer MEDICARE, SELFPAY | PROVIDERS: PCP Nurse Practitioner Family; Visit Provider Nurse Practitioner Family | DX: I10 Essential (primary) hypertension (principal); E55.9 Vitamin D deficiency, unspecified; Z79.01 Long term (current) use of anticoagulants; N18.9 Chronic kidney disease, unspecified; D64.9 Anemia, unspecified; R63.4 Abnormal weight loss; E78.5 Hyperlipidemia, unspecified | CPT/HCPCS: 80053; 80061; 81003; 82306; 82607; 82728; 82746; 83036; 83550; 84443; 85025 ==

== ENCOUNTER → 2025-06-26 11:32 | Outpatient (BNVA) | payer MEDICARE, SELFPAY | PROVIDERS: PCP Nurse Practitioner Family; Visit Provider Internal Medicine Cardiovascular Disease | DX: R07.89 Other chest pain (principal); I10 Essential (primary) hypertension; Z79.01 Long term (current) use of anticoagulants; Z79.82 Long term (current) use of aspirin; Z86.73 Personal history of transient ischemic attack (TIA), and cerebral infarction without residual deficits; Z86.711 Personal history of pulmonary embolism; Z86.718 Personal history of other venous thrombosis and embolism; Z87.891 Personal history of nicotine dependence; G45.9 Transient cerebral ischemic attack, unspecified; R07.9 Chest pain, unspecified; Z98.61 Coronary angioplasty status | CPT/HCPCS: 93005; 99215 ==

== ENCOUNTER → 2025-08-27 10:39 | Outpatient (BNVA) | payer MEDICARE, SELFPAY | PROVIDERS: PCP Nurse Practitioner Family; Visit Provider Nurse Practitioner Family | DX: R82.998 Other abnormal findings in urine (principal) | CPT/HCPCS: 81003 ==